=== PATIENT | male | born 1935 | race Caucasian/White ===

== ENCOUNTER 2016-03-10 07:42 | Inpatient (IN) | payer BC, OTHER ==
[2016-03-10] VITALS (30 sets, daily range): BP systolic 95–123; BP diastolic 47–81; PULSE 60–82; TEMP 36.2–36.4; O2SAT 93–99; Ht 162.6 cm; Wt 79.8 kg
[~2016-03-10] VITALS: Ht 162.6 cm; Wt 79.8 kg
[2016-03-10] MEDS ORDERED: SODIUM CHLORIDE 0.9% 1000ML 1,000 ML IV STA (08:19)
[2016-03-10] MEDS ORDERED: ASPIRIN 81 MG CHEW PO STA (08:19)
[2016-03-10] MEDS ORDERED: NITROGLYCERIN OINT 2% 1GM PACKET EXT ONE (08:30)
[2016-03-10 08:37] LABS: BASO % 0.1 %; BASO ABS # 0.01 K/uL (0-0.2); COMPLETE YES; HEMATOCRIT 42.4 % (42-52); IG% 0.4 %; LYMPH % 9.9 %; LYMPH ABS # 1.04 K/uL (1.2-3.4); MEAN CELL VOLUME 89.3 fL (80-100); MEAN CORPUSCULAR HEMOGLOBIN 31.4 pg (25-34); MEAN CORPUSCULAR HGB CONC 35.1 g/dl (32-36); MEAN PLATELET VOLUME 9.7 fL (7.4-10.4); MONO % 6.1 %; NEUT % 83.5 %; PLATELET COUNT 274 K/uL (130-400); RED BLOOD COUNT 4.75 M/uL (4.7-6.1); WHITE BLOOD COUNT 10.49 K/uL (4.8-10.8)
[2016-03-10 08:47] LABS: BUN/CREATININE RATIO 10.7 (10-20); CALCIUM 9.5 mg/dl (8.5-10.1); CREATININE 1.2 mg/dl (0.60-1.40); POTASSIUM 3.9 mmol/L (3.5-5.1)
[2016-03-10] MEDS ORDERED: METOPROLOL TARTRATE 1 MG/ML VIAL IV STA (08:48)
[2016-03-10 08:50] LABS: INR 1.1 (0.9-1.1); PARTIAL THROMBOPLASTIN RATIO 1.2
--- NOTE | 2016-03-10 08:50 | DIAGNOSTIC IMAGING REPORT ---
CHEST ONE VIEW PORTABLE HISTORY: Atypical chest pain. COMPARISON: Chest 05/18/2007. FINDINGS: The heart is top normal in size. Mild eventration of the right hemidiaphragm, unchanged. Bilateral hilar prominence remains stable. No pleural effusions. No pneumothorax. The lungs are clear. IMPRESSION: No significant change compared to the prior study. No acute process. Electronically signed by: Garrett Corbin M.D. 03/10/2016 8:48 AM Dictated Date/Time: 03/10/2016 8:47 AM
[2016-03-10 08:56] LABS: CKMB/CK RATIO 16.5 (0-3.0)
[2016-03-10] MEDS ORDERED: HEPARIN SOD 5000 UNIT/0.5 ML CARP ONE (08:56)
[2016-03-10] MEDS ORDERED: HEPARIN 25000 UNIT/500 ML D5W ONE (08:56)
--- NOTE | 2016-03-10 09:09 | EMERGENCY ROOM VISIT NOTE ---
ED Visit Note First contact with patient: 07:59 JOSEF informed me of patient with chief complaint of chest pain, subtle EKG changes. poc troponin was positive. Case d/w JOSEF and Dr. Hoyos. I examined patient ~ 8:55a. Patient is an otherwise robustly healthy hoover whom has not seen a doctor in more than 7 years who noted vague indigestion last evening followed by a mild to moderate retrosternal chest pain now constant for nearly 10 hours. Patient has received Aspirin 324mg and nitropaste with some improvement in his chest pain. He appears comfortable on my exam with subjective report of mild chest discomfort that is clearly "better but still there." PA has facilitated heparin bolus/drip as well as lopressor. I ordered nitro drip as an adjunctive measure pending formal cardiology consultation and catheterization. I personally spoke with Dr. Hoyos at 09:05 who understands patient has nearly 10 hours of constant CP with EKG changes and positive troponin. He states he is presently on his way to ED to evaluate patient. 10:30 Dr. Hoyos has completed his consultation and [facility] hospitalist service at bedside.
[2016-03-10] MEDS: NITROGLYCERIN/D5W 100 MCG/ML 250 ML IV PRN ×3 (09:12→10:30)
[2016-03-10] MEDS ORDERED: MoRPHine SULFATE 2 MG/ML CARP IV PRN (10:00)
[2016-03-10] MEDS ORDERED: ACETAMINOPHEN 325 MG TAB PO PRN ×3 (10:00→13:45)
[2016-03-10] MEDS ORDERED: EPTIFIBATIDE BOLUS / DRIP IV STA (10:01)
[2016-03-10] MEDS ORDERED: EPTIFIBATIDE INJ 75 MG PREMIXED IV SCH ×2 (10:15→17:30)
[2016-03-10] MEDS ORDERED: EPTIFIBATIDE IV ONE (10:15)
[2016-03-10] MEDS ORDERED: NITROGLYCERIN/D5W 100 MCG/ML 250 ML IV PRN (10:15)
--- NOTE | 2016-03-10 10:53 | History and Physical ---
History & Physical Date & Time of Service: Mar 10, 2016 at 10:37 Chief Complaint: Chest Pain Primary Care Physician: No Doctor, Assigned History of Present Illness Source: patient, family This patient is a pleasant 81-year-old male that presents to the emergency department complaining of chest pain that started last night around 10 PM. The patient thought that it was possibly indigestion. He tried to take 5 Tums throughout the night with no relief. It was fairly constant throughout the night. He denies any shortness of breath. He did have a few brief episodes of sweating. He denies any dizziness. No nausea or vomiting. No heart palpitations. Patient denies any history of coronary disease. He does not however regularly go to the doctor. Workup in the emergency department included an EKG, which shows normal sinus rhythm with a rate of [address] depression noted in the inferior and lateral leads. Initial troponin is elevated at 6. The patient was started on aspirin, heparin and a nitro drip. Cardiology was consulted and evaluated the patient in the emergency department. Since arrival in the ED, the patient's pain has gotten better. Past Medical/Surgical History History of kidney stones status post lithotripsy Family History Father and grandfather of heart disease in their 80s and 90s Social History Smoking Status: Never Smoker Smokeless Tobacco Use: No Alcohol Use: none Drug Use: none Marital Status: Housing status: lives alone Occupational Status: employed (still fairly active working on the [employer]) Allergies Coded Allergies: No Known Allergies (Verified , 03/10/16) Home Medications No Active Prescriptions or Reported Meds Review of Systems Patient does note that he caught a cold about a week ago with a cough and runny nose. No feverish symptoms. Symptoms are resolving. 10 system review performed and negative unless noted in HPI or below Physical Exam Vital Signs Date Time Temp Pulse Resp B/P Pulse Ox O2 Delivery O2 Flow Rate FiO2 03/10/16 10:32 75 03/10/16 10:30 70 20 99/68 96 Room Air 03/10/16 10:05 63 18 120/66 97 Room Air 03/10/16 09:42 72 18 139/87 96 Room Air 03/10/16 09:06 72 18 145/83 96 Room Air 03/10/16 08:59 83 147/85 03/10/16 08:36 82 18 150/93 97 Room Air 03/10/16 08:17 96 Room Air 03/10/16 07:57 87 03/10/16 07:54 36.9 86 20 150/90 97 Room Air General Appearance: no apparent distress Head: normocephalic Eyes: EOMI ENT: + pertinent finding (oral mucosa slightly dry) Neck: no JVD Respiratory/Chest: lungs clear Cardiovascular: regular rate, rhythm Abdomen/GI: normal bowel sounds, non tender, soft Extremities/Musculoskelatal: no calf tenderness, no pedal edema Neurologic/Psych: no motor/sensory deficits, oriented x 3 Skin: warm/dry Diagnostics Laboratory Results Results Past 24 Hours Test 03/10/16 07:59 03/10/16 08:25 03/10/16 08:35 Range/Units White Blood Count 10.49 4.8-10.8 K/uL Red Blood Count 4.75 4.7-6.1 M/uL Hemoglobin 14.9 14.0-18.0 g/dL Hematocrit 42.4 42-52 % Mean Corpuscular Volume 89.3 80-100 fL Mean Corpuscular Hemoglobin 31.4 25-34 pg Mean Corpuscular Hemoglobin Concent 35.1 32-36 g/dl Platelet Count 274 130-400 K/uL Mean Platelet Volume 9.7 7.4-10.4 fL Neutrophils (%) (Auto) 83.5 % Lymphocytes (%) (Auto) 9.9 % Monocytes (%) (Auto) 6.1 % Eosinophils (%) (Auto) 0.0 % Basophils (%) (Auto) 0.1 % Neutrophils # (Auto) 8.76 1.4-6.5 K/uL Lymphocytes # (Auto) 1.04 1.2-3.4 K/uL Monocytes # (Auto) 0.64 0.11-0.59 K/uL Eosinophils # (Auto) 0.00 0-0.5 K/uL Basophils # (Auto) 0.01 0-0.2 K/uL RDW Standard Deviation 42.8 36.4-46.3 fL RDW Coefficient of Variation 13.1 11.5-14.5 % Immature Granulocyte % (Auto) 0.4 % Immature Granulocyte # (Auto) 0.04 0.00-0.02 K/uL Prothrombin Time 12.0 9.0-12.0 SECONDS Prothromb Time International Ratio 1.1 0.9-1.1 Activated Partial Thromboplast Time 29.9 21.0-31.0 SECONDS Partial Thromboplastin Ratio 1.2 Sodium Level 136 136-145 mmol/L Potassium Level 3.9 3.5-5.1 mmol/L Chloride Level 100 98-107 mmol/L Carbon Dioxide Level 23 21-32 mmol/L Anion Gap 13.0 3-11 mmol/L Blood Urea Nitrogen 13 7-18 mg/dl Creatinine 1.20 0.60-1.40 mg/dl Est Creatinine Clear Calc Drug Dose 45.7 ml/min Estimated GFR () 65.8 Estimated GFR (Non- 56.8 BUN/Creatinine Ratio 10.7 10-20 Random Glucose 145 70-99 mg/dl Calcium Level 9.5 8.5-10.1 mg/dl Magnesium Level 2.0 1.8-2.4 mg/dl Total Bilirubin 0.9 0.2-1 mg/dl Aspartate Amino Transf (AST/SGOT) 94 15-37 U/L Alanine Aminotransferase (ALT/SGPT) 47 12-78 U/L Alkaline Phosphatase 70 45-117 U/L Total Creatine Kinase 900 39-308 U/L Creatine Kinase MB 148.3 0.5-3.6 ng/ml Creatine Kinase MB Ratio 16.5 0-3.0 Troponin I 6.820 0-0.045 ng/ml Total Protein 7.9 6.4-8.2 gm/dl Albumin 3.9 3.4-5.0 gm/dl Globulin 4.0 2.5-4.0 gm/dl Albumin/Globulin Ratio 1.0 0.9-2 Lipase 141 73-393 U/L Bedside Troponin I 4.650 0-0.045 ng/ml Influenza Type A Antigen Neg for Influ A NEG Influenza Type B Antigen Neg for Influ B NEG Diagnostic Radiology Patient Name: DIVINA GUZMAN Unit Number: [id number] Dictated: 03/10/16846 Transcribed: 03/10/16846 KASHIF Printed Date/Time: [~ rep prt dt]/[~ rep prt tm] [~ rep ct labl] - [~ rep ct ivnm] [facility] [place] [place] [address] Dictated: 03/10/1647 Transcribed: 03/10/16 0847 PAJ Printed Date/Time: [~ rep prt dt]/[~ rep prt tm] [~ rep ct labl] - [~ rep ct ivnm] Patient: DIVINA GUZMAN Address1: [facility] [address] Med Rec: [id number] Address2: Acct ID: [id number] [facility] Zip: [place] [address] Date: 1935 Sex: M Room/Bed: Ref Phy: No Doctor, Assigned SC: GopalPRASAD Att Phy: Report #: [id number] [facility] Phy: No Doctor, Assigned Test: CXR1P Admit Phy: Bid Clerk: SANIA Interpreting Phy: Garrett Corbin MD Diagnosis: CHEST PAIN Ordering Phy: Kannan Lund PA-C Service Date: 03/10/16 Admit Date: 03/10/16 MNE: [id number] CONF: DICTATED BY: Garrett Corbin M.D.]] CC: No Doctor, Assigned Kannan Lund, Pastora El MD Endcc: [~ rep ct add3]] CHEST ONE VIEW PORTABLE HISTORY: Atypical chest pain. COMPARISON: Chest 05/18/2007. FINDINGS: The heart is top normal in size. Mild eventration of the right hemidiaphragm, unchanged. Bilateral hilar prominence remains stable. No pleural effusions. No pneumothorax. The lungs are clear. IMPRESSION: No significant change compared to the prior study. No acute process. Electronically signed by: Garrett Corbin M.D. 03/10/2016 8:48 AM Dictated Date/Time: 03/10/2016 8:47 AM The status of this report is Signed. Draft = Not yet reviewed or approved by Radiologist. Signed = Reviewed and approved by Radiologist. <AttendingPhy></AttendingPhy> <FamilyPhy>No Doctor, Assigned</FamilyPhy> < PrimaryPhy>No Doctor, Assigned</PrimaryPhy> <UnitNumber>[id number]</UnitNumber> <VisitNumber>[id number]</VisitNumber> <PatientName>DIVINA GUZMAN</ PatientName> <DateOfBirth>1935</DateOfBirth> <Location>[facility]</Location> < ServiceDate>03/10/16</ServiceDate> <MNE>ESINDI</MNE> <OrderingPhy>Kannan Lund PA-C</OrderingPhy> <OrderingPhyMNE>f rep ord dr wall</OrderingPhyMNE> < DictatingPhyMNE>f rep dict dr wall</DictatingPhyMNE> <CCListMNE>f rep ct polinae</ CCListMNE> <AdmittingPhyMNE>f pt admit dr wall</AdmittingPhyMNE> <AttendingPhyMNE >f pt attend dr wall</AttendingPhyMNE> <ConsultingPhyMNE>f pt consult dr wall</ConsultingPhyMNE> <FamilyPhyMNE>f pt fam dr wall</FamilyPhyMNE> <OtherPhyMNE>f pt other dr wall</OtherPhyMNE> < PrimaryPhyMNE>f pt prim care dr wall</PrimaryPhyMNE> <ReferringPhyMNE>f pt referring dr wall</ReferringPhyMNE> EKG Normal sinus rhythm [address] depression noted in the inferior lateral leads Repeat EKG done approximately [address] changes improved Impression Assessment and Plan 81-year-old male presents emergency department with anginal symptoms. Initial EKG with ST depression in inferior and lateral leads with an elevated troponin at 6. Initially hypertensive in the emergency department-now improved NSTEMI -Admit to ICU -Trend cardiac enzymes -Cardiology consult appreciated -Continue nitro drip -Continue heparin drip -Begin Integrilin -Begin ASA and statin -Check lipid profile -Metoprolol tartrate 5 mg IV q 6 hr today -NPO After midnight. Likely cath in the morning. HTN-BP initially high -Continue meds as noted above today -Possibly switch to metoprolol ER tomorrow -Consider low-dose SELMA inhibitor if BP will tolerate Upper respiratory tract infection-chest x-ray clear. Afebrile. Likely viral. -treat sx prn -check FLU DVT prophylaxis -Heparin drip -TEDS, SCDs CODE STATUS -LEVEL I FULL CODE I agree with PA assessment and plan and have seen and examined pt myself. Pt reports chest pain improved No Med Hx Elev trops and mild depressions noted on EKG CVS RRR no m/r/g Plan is ?cath but not emergent at this time, cont heparin, statin, asa, integrilin Level of Care Critical Care Resuscitation Status FULL RESUSCITATION VTE Prophylaxis VTE Risk Assessment Done? Y/N: Yes Risk Level: Low Given or contraindicated: Other Anticoagulation, T.E.D. Stockings, SCD's
[2016-03-10] MEDS ORDERED: PERFLUTREN LIPID MICROSPHERE (DEFINITY) IV ONE (11:16)
[2016-03-10 11:28] LABS: ESTIMATED AVERAGE GLUCOSE 117 mg/dl; HA1C FLAG Normal (Normal)
[2016-03-10] MEDS ORDERED: NiCARDipine HCL INJ 2.5 MG/ML 10 ML AMP ONE (11:37)
[2016-03-10] MEDS ORDERED: HEPARIN SOD (PORCINE) 1000 UNIT/ML 10 ML VIAL ONE (11:37)
[2016-03-10] MEDS ORDERED: FENTANYL CITRATE INJ 50 MCG/1 ML 2 ML VIAL ONE (11:40)
[2016-03-10] MEDS ORDERED: NITROGLYCERIN/D5W 100MCG/ML 20ML SYR ONE (11:40)
[2016-03-10] MEDS ORDERED: MIDAZOLAM HCL 1 MG/ML 2ML VIAL ONE ×2 (11:40→12:44)
--- NOTE | 2016-03-10 11:43 | Procedure Note ---
Pre-Mod Sedation Assessment General Date of Moderate Sedation: Mar 10, 2016. Vital Signs: Vital Signs Past 12 Hours Date Time Temp Pulse Resp B/P Pulse Ox O2 Delivery O2 Flow Rate FiO2 03/10/16 11:22 68 18 99 03/10/16 11:18 100/53 03/10/16 11:12 63 23 98 03/10/16 11:08 115/57 03/10/16 11:02 64 20 100 03/10/16 10:58 97/54 03/10/16 10:52 64 21 96 03/10/16 10:48 103/55 03/10/16 10:47 65 24 105/53 95 Room Air 03/10/16 10:42 64 22 95 03/10/16 10:38 105/53 03/10/16 10:32 65 26 96 03/10/16 10:32 75 03/10/16 10:30 70 20 99/68 96 Room Air 03/10/16 10:29 99/68 03/10/16 10:22 64 19 96 03/10/16 10:18 116/71 03/10/16 10:12 64 29 95 03/10/16 10:08 104/71 03/10/16 10:05 63 18 120/66 97 Room Air 03/10/16 10:02 64 16 95 03/10/16 09:58 120/66 03/10/16 09:52 68 15 96 03/10/16 09:48 120/74 03/10/16 09:42 72 18 139/87 96 Room Air 03/10/16 09:42 69 19 96 03/10/16 09:38 139/87 03/10/16 09:32 69 18 94 03/10/16 09:28 127/79 03/10/16 09:22 71 26 94 03/10/16 09:18 136/83 03/10/16 09:12 72 22 95 03/10/16 09:11 149/75 03/10/16 09:06 72 18 145/83 96 Room Air 03/10/16 09:05 145/83 03/10/16 09:02 78 21 95 03/10/16 08:59 83 147/85 03/10/16 08:58 147/85 03/10/16 08:56 150/85 03/10/16 08:52 88 17 98 03/10/16 08:43 148/89 03/10/16 08:42 80 23 95 03/10/16 08:36 82 18 150/93 97 Room Air 03/10/16 08:32 81 27 98 03/10/16 08:30 150/93 03/10/16 08:17 96 Room Air 03/10/16 08:12 88 26 98 03/10/16 08:02 83 17 97 03/10/16 07:58 159/82 03/10/16 07:57 87 03/10/16 07:54 36.9 86 20 150/90 97 Room Air 03/10/16 07:52 150/90 Review Cardiovascular: regular rate, rhythm, no edema, no gallop, no JVD, no murmur, normal peripheral pulses Abdomen: non tender, soft Lungs: lungs clear Pre-Sedation Airway Assessment Oral Cavity: Dental Abnormalities Able to Visualize Vocal Cords: No Short Thick Neck: No Hx of Sleep Apnea: No Smoking Status: Never Smoker Mallampati Classification: Class III ASA Classification: Class II Procedure Planning Contraindications-for Mod Sed: None Yes Notes The planned sedation has been discussed with the patient and consent obtained. I have identified the patient, determined the appropriateness of sedation and have assessed the patient immediately prior to the procedure. All medicine(s) and interventions are by my order.
[2016-03-10] MEDS ORDERED: METOPROLOL TARTRATE 1 MG/ML VIAL IV. SCH (12:00)
[2016-03-10] MEDS ORDERED: CLOPIDOGREL BISULFATE 300 MG TAB PO ONE (13:02)
[2016-03-10] MEDS: SODIUM CHLORIDE 0.9% 1000ML 1,000 ML IV SCH (13:45)
[2016-03-10] MEDS ORDERED: EPTIFIBATIDE BOLUS / DRIP IV ONE (13:45)
[2016-03-10] MEDS ORDERED: ONDANSETRON INJ 2 MG/ML 2 ML VIAL IV PRN (13:45)
[2016-03-10] MEDS ORDERED: ATROPINE SULFATE 0.1 MG/ML 5ML SYR IV PRN (13:45)
[2016-03-10] MEDS ORDERED: ALUMINUM/MAGNESIUM/SIMETH (MAALOX MAX) 30 ML UDC PO PRN (13:45)
[2016-03-10] MEDS ORDERED: MAGNESIUM HYDROXIDE SUSP 30 ML UDC PO PRN (13:45)
--- NOTE | 2016-03-10 13:45 | Procedure Note ---
Post-Mod Sedation Assessment General Date of Moderate Sedation Mar 10, 2016. Vital Signs: Vital Signs Past 12 Hours Date Time Temp Pulse Resp B/P Pulse Ox O2 Delivery O2 Flow Rate FiO2 03/10/16 13:25 62 16 97/60 98 Room Air 03/10/16 13:20 62 16 95/63 98 Room Air 03/10/16 13:15 65 16 112/80 98 Room Air 03/10/16 13:10 65 16 107/91 98 Room Air 03/10/16 11:37 36.9 68 18 100/53 99 03/10/16 11:22 68 18 99 03/10/16 11:18 100/53 03/10/16 11:12 63 23 98 03/10/16 11:08 115/57 03/10/16 11:02 64 20 100 03/10/16 10:58 97/54 03/10/16 10:52 64 21 96 03/10/16 10:48 103/55 03/10/16 10:47 65 24 105/53 95 Room Air 03/10/16 10:42 64 22 95 03/10/16 10:38 105/53 03/10/16 10:32 65 26 96 03/10/16 10:32 75 03/10/16 10:30 70 20 99/68 96 Room Air 03/10/16 10:29 99/68 03/10/16 10:22 64 19 96 03/10/16 10:18 116/71 03/10/16 10:12 64 29 95 03/10/16 10:08 104/71 03/10/16 10:05 63 18 120/66 97 Room Air 03/10/16 10:02 64 16 95 03/10/16 09:58 120/66 03/10/16 09:52 68 15 96 03/10/16 09:48 120/74 03/10/16 09:42 72 18 139/87 96 Room Air 03/10/16 09:42 69 19 96 03/10/16 09:38 139/87 03/10/16 09:32 69 18 94 03/10/16 09:28 127/79 03/10/16 09:22 71 26 94 03/10/16 09:18 136/83 03/10/16 09:12 72 22 95 03/10/16 09:11 149/75 03/10/16 09:06 72 18 145/83 96 Room Air 03/10/16 09:05 145/83 03/10/16 09:02 78 21 95 03/10/16 08:59 83 147/85 03/10/16 08:58 147/85 03/10/16 08:56 150/85 03/10/16 08:52 88 17 98 03/10/16 08:43 148/89 03/10/16 08:42 80 23 95 03/10/16 08:36 82 18 150/93 97 Room Air 03/10/16 08:32 81 27 98 03/10/16 08:30 150/93 03/10/16 08:17 96 Room Air 03/10/16 08:12 88 26 98 03/10/16 08:02 83 17 97 03/10/16 07:58 159/82 03/10/16 07:57 87 03/10/16 07:54 36.9 86 20 150/90 97 Room Air 03/10/16 07:52 150/90 Review - Discharge Criteria Vital Signs Stable: Yes Alert/Oriented/Conversant: Yes Returned to Baseline Mental St: Yes Nausea Absent/Minimal: Yes Pain/Discomfort/Absent/Minimal: Yes Normal/Baseline Respirations: Yes Active Bleeding?: No Pt Received D/C Instructions: N/A Prescriptions Given: None Specific Proced. D/C Criteria Distal Pulses Present (Cardiac: Yes Groin site assessed-Card Cath: N/A Voided Prior To Discharge: N/A Discharged Patients Adult Escort/Transportation: N/A
[2016-03-10 14:47] LABS: BASO % 0.1 %; BASO ABS # 0.01 K/uL (0-0.2); EOS % 0.2 %; HEMATOCRIT 38.6 % (42-52); IG% 0.4 %; LYMPH ABS # 1.42 K/uL (1.2-3.4); MEAN CELL VOLUME 89.8 fL (80-100); MEAN CORPUSCULAR HEMOGLOBIN 31.9 pg (25-34); MEAN PLATELET VOLUME 9.7 fL (7.4-10.4); MONO % 5.6 %; NEUT % 79.7 %; PLATELET COUNT 237 K/uL (130-400); WHITE BLOOD COUNT 10.17 K/uL (4.8-10.8)
[2016-03-10 15:01] LABS: COMPLETE YES; MEAN CORPUSCULAR HGB CONC 35.5 g/dl (32-36)
[2016-03-10 15:16] LABS: BLOOD UREA NITROGEN 13 mg/dl (7-18); BUN/CREATININE RATIO 14.1 (10-20); CALCIUM 8.3 mg/dl (8.5-10.1); CARBON DIOXIDE 24 mmol/L (21-32); CHLORIDE 102 mmol/L (98-107); CREATININE 0.91 mg/dl (0.60-1.40); GLUCOSE 102 mg/dl (70-99); POTASSIUM 3.7 mmol/L (3.5-5.1); SODIUM 137 mmol/L (136-145)
--- NOTE | 2016-03-10 15:28 | Cardiac Catheterization ---
Procedure Note Procedure Date Mar 10, 2016. Pre-Procedure Diagnosis Non STEMI, Acute Coronary Syndrome AUC Score 9 Post-Procedure Diagnosis Severe CAD, Successful PCI, Elevated Intracardiac Pressures Procedure(s) Performed Coronary Angiography, Left Heart Cath, PTCA, Drug Eluting Stent Radiology Director Dr. Hoyos [employer] Mechanic(s) Javan Stevens,RTR Estimated Blood Loss 30 ml Medication(s) Clopidogrel (600 mg PO post PCI), Fentanyl, Heparin, Integrilin, Nicardipine ( Intra arterial and intracoronary), Versed, Lidocaine 1% Summary of Findings Right dominant circulation, mild CAD of LAD and RCA. Total proximal left circumflex occlusion. R - L collaterals. PTCA and ELEAZAR to left Cx . 2.25 X 18 mm Medtronic Resolute ELEAZAR. Proximal and mid portion of stent post dilated with 2.75 X 8 mm non compliant balloon. Residual stenosis 0-10%. CHRISTAL 3 flow in L CX and all branches. No complications. Plan: IV Integrilin X 18 hr. ASA,clopidogrel,atorvastatin, lisinopril, metoprolol. Serial ECG and labs. ICU overnight. Hemodynamics Rest Ao: 104/54/76 mm Hg. Final Ao: 90/52/68 mm Hg. LV: 102/20 mm Hg. Recommendations Medical therapy and/or Counseling, PCI without planned CABG Specimens None Radiation Exposure (mGy) 3707 Contrast (mls) 250 ml Visipaque Fluids (cc crystalloids) 400 Drains none Anesthesia IV versed,fentanyl. Lidocaine 1% local. Procedural Complication(s) None Disposition ICU ACC Data Cardiac Status Clinical evaluation leading to the procedure CAD Presntation: Non STEMI Anginal Classification: CCS IV Heart Failure: No Cardiogenic Shock w/in 24Hrs: No Cardiac Arrest w/in 24Hrs: No Imaging studies past 6 months: Yes Stress studies past 6 months: No Standard Exercise Stress Test: No Stress Echocardiogram: No Stress Testing w/SPECT MPI: No Cardiac CTA: No Coronary Anatomy Dominant: Right Left Main (% Stenosis): Normal LAD (% Stenosis): Proximal (diffuse 10-20), Mid (50,30-40), Distal (20) D1 (% Stenosis): Normal D2 (% Stenosis): Ostial (50) Circumflex (% Stenosis): Proximal (100) OM1 (% Stenosis): Ostial (50) OM2 (% Stenosis): Proximal (0-10), Mid (0-10) Left Ventricular Angiography EF (%): NA Diagnostic Physician's Name: Valeriy Hoyos M.D. Status: Elective Closure Device Percutaneous Entry Location: Radial Closure Device: Radial Band Recommendations: Medical therapy and/or Counseling, PCI without planned CABG PCI Indication: PCI for high risk Non-STEMI Lesion Segment Name: Proximal left Cx Culprit Artery: Yes Stenosis Prior to Rx (%): 100 Chronic Total Occlusion: No IVUS: No FFR: No Ratio: less than or equal to 0.75% Pre-Procedure CHRISTAL Flow: 0 Previously Treated Lesion: No Lesion Complexity: Non-High/Non-C Lesion Length (mm): 14 Thrombus Present: Yes Bifurcation Lesion: No Guidewire Across Lesion: Yes Guidewire: Stenosis Post-Procedure (%): 0-10 Post-Procedure CHRISTAL Flow: 3 Device(s) Deployed: Yes Type of Device(s): Medtronic Resolute 2.25 X 18 mm ELEAZAR. Intraprocedure Events Significant Dissection: No Perforation: No
--- NOTE | 2016-03-10 16:16 | ECHOCARDIOGRAM REPORT ---
*NOTICE TO RECEIVING [employer] This information is strictly Confidential and protected under [place] law. [place] law prohibits you from making any further disclosure of this information unless further disclosure is expressly permitted by the written consent of the person to whom it pertains or is authorized by law. A general authorization for the release of medical or other information is not sufficient for this purpose. Hospital accepts no responsibility if the information is made available to any other person, INCLUDING THE PATIENT. Interpretation Summary * Name: DIVINA GUZMAN Study Date: 03/10/2016 10:31 AM BP: 105/53 mmHg * Patient Location: [facility] HR: 66 * : 1935 (M/d/yyyy) Gender: Male Height: 63 in * Age: 81 yrs Ethnicity: CA Weight: 174 lb * Ordering Physician: Valeriy Hoyos * Referring Physician: Self, Referred * Performed By: Diana Cardenas RDCS * * Reason For Study: CHEST PAIN * BSA: 1.8 m2 * History: CHEST PAIN * Low normal overall LV systolic function. * Basal - mid posterior, lateral, basal inferior hypokinesis. * Mild right ventricular dilatation. * Mild right ventricular systolic dysfunction. * Mild left atrial dilatation. * Mild mitral regurgitation. * Trace tricuspid regurgitation. * -- Conclusions -- * Aortic valve sclerosis mild, without significant aortic valvular stenosis. Procedure Details * A contrast injection of Definity was performed to improve assessment of LV function. * Contrast was injected into an intravenous site in the left arm. * One vial of Definity ultrasound contrast was diluted in normal saline to a total volume of 10 ml. A total of '2' ml of solution was administered during imaging. * Lot # [id number] of Definity utilized for procedure. * Expiration date 1 AUG 01. * The attending nurse who injected the contrast agent was KAIDEN KIMBROUGH. Left Ventricle * The left ventricle is normal in size. * There is normal left ventricular wall thickness. * Ejection Fraction = 50-55%. * Left ventricular systolic function is low normal. * Basal-mid posterior hypokinesis. Lateral hypokinesis. Basal inferior hypokinesis. Right Ventricle * The right ventricle is mildly dilated. * The right ventricular systolic function is mildly reduced. Atria * The left atrium is mildly dilated. * Right atrial size is normal. * No ASD detected; PFO is not assessed. Mitral Valve * The mitral valve is normal. * There is no mitral valve stenosis. * There is mild mitral regurgitation. Tricuspid Valve * The tricuspid valve is normal. * There is no tricuspid stenosis. * There is trace tricuspid regurgitation. * Right ventricular systolic pressure is normal. Aortic Valve * The aortic valve is trileaflet. * The aortic valve opens well. * Aortic valve sclerosis mild, without significant aortic valvular stenosis. * Aortic stenosis is absent. * No aortic regurgitation is present. Pulmonic Valve * The pulmonic valve is not well visualized. * There is no significant pulmonary regurgitation. Great Vessels * The aortic root is normal size. Pericardium/Pleural * There is no pericardial effusion. Great Vessels * Normal inferior vena cava diameter and respiratory variation suggests normal central venous pressure. MMode 2D Measurements and Calculations IVSd 1.0 cm IVSs 1.7 cm LVIDd 5.3 cm LVIDs 3.9 cm LVPWd 0.89 cm LVPWs 1.1 cm IVS/LVPW 1.2 FS 26.3 % EDV(Teich) 133.1 ml ESV(Teich) 65.0 ml EF(Teich) 51.1 % EDV(cubed) 145.6 ml ESV(cubed) 58.3 ml EF(cubed) 60.0 % % IVS thick 61.2 % % LVPW thick 20.5 % LV mass(C)d 188.6 grams LV mass(C)dI 103.4 grams/m\S\2 LV mass(C)s 193.7 grams LV mass(C)sI 106.3 grams/m\S\2 SV(Teich) 68.0 ml SI(Teich) 37.3 ml/m\S\2 SV(cubed) 87.3 ml SI(cubed) 47.9 ml/m\S\2 Ao root diam 3.5 cm Ao root area 9.6 cm\S\2 LA dimension 4.0 cm LA/Ao 1.1 LVAd ap4 33.9 cm\S\2 LVLd ap4 7.8 cm EDV(MOD-sp4) 119.4 ml EDV(sp4-el) 124.9 ml LVAs ap4 21.8 cm\S\2 LVLs ap4 6.8 cm ESV(MOD-sp4) 56.4 ml ESV(sp4-el) 59.3 ml EF(MOD-sp4) 52.7 % EF(sp4-el) 52.5 % LVAd ap2 27.6 cm\S\2 LVLd ap2 7.4 cm EDV(MOD-sp2) 82.8 ml EDV(sp2-el) 87.6 ml LVAs ap2 16.7 cm\S\2 LVLs ap2 6.0 cm ESV(MOD-sp2) 36.4 ml ESV(sp2-el) 39.6 ml EF(MOD-sp2) 56.1 % EF(sp2-el) 54.8 % LVLd %diff -5.84 % EDV(MOD-bp) 102.0 ml LVLs %diff -14.07 % ESV(MOD-bp) 48.6 ml EF(MOD-bp) 52.3 % SV(MOD-sp4) 63.0 ml SI(MOD-sp4) 34.6 ml/m\S\2 SV(MOD-sp2) 46.5 ml SI(MOD-sp2) 25.5 ml/m\S\2 SV(MOD-bp) 53.4 ml SI(MOD-bp) 29.3 ml/m\S\2 SV(sp4-el) 65.6 ml SI(sp4-el) 36.0 ml/m\S\2 SV(sp2-el) 48.1 ml SI(sp2-el) 26.4 ml/m\S\2 Doppler Measurements and Calculations MV E max yordy 78.6 cm/sec MV A max yordy 51.4 cm/sec MV E/A 1.5 MV dec time 0.20 sec Ao V2 max 119.4 cm/sec Ao max PG 5.7 mmHg Ao max PG (full) 2.8 mmHg LV V1 max PG 2.9 mmHg LV V1 max 85.4 cm/sec TR max yordy 245.7 cm/sec
--- NOTE | 2016-03-10 16:46 | EMERGENCY ROOM VISIT NOTE ---
History First contact with patient: 07:59 Chief Complaint: CHEST PAIN Stated Complaint: NSTEMI Nursing Triage Summary: pt c/o left chest pain started at 2200 last night unable to sleep pt thought it was the cabbage and potatoes he ate. denies any n/v pain radiated to jaw and left arm last night but not today also reports he got sweaty a couple times last night pt reports he took 3 baby asa this am History of Present Illness The patient is a 81 year old male who presents to the Emergency Department by private vehicle with his daughter for evaluation of his LEFT sided chest pain. The patient reports that he shoveled snow last evening at approximately 8:30. While resting and watching television at 10 PM, he noticed some central chest discomfort. He thought his symptoms were consistent with heartburn as he reports eating cabbage and potatoes that evening. He ambulated around the house , but reports that he did not receive any relief of symptoms. Upon awakening this morning, he has had persistent pain which has lateralized to the LEFT- sided chest. He reports the pain is now constant in nature. He denies any aggravating or alleviating symptoms. He did take 3 baby aspirin prior to arrival. He rates his current discomfort as a 7/10. He reports radiation to the LEFT-sided face and arm last evening when the pain was most intense. He denies any radiation of pain at this point. He currently denies any headaches, dizziness, lightheadedness, palpitations, shortness of breath, pleuritic pain, nausea, vomiting, or abdominal pain. The patient reports no history of coronary artery disease, hypertension, or hyperlipidemia. Admittedly, the patient has not seen a primary care provider for several years. He does report a significant paternal family history of coronary artery disease. Review of Systems A complete 10-point Review of Systems was discussed with the patient, with pertinent positives and negatives listed in the History of Present Illness. All remaining Review of Systems questions can be considered negative unless otherwise specified. 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) Current/Historical Medications No Active Prescriptions or Reported Meds Allergies Coded Allergies: No Known Allergies (Verified , 03/10/16) Physical Exam Vital Signs Date Time Temp Pulse Resp B/P Pulse Ox O2 Delivery O2 Flow Rate FiO2 03/10/16 10:08 104/71 03/10/16 10:05 63 18 120/66 97 Room Air 03/10/16 10:02 64 16 95 03/10/16 09:58 120/66 03/10/16 09:52 68 15 96 03/10/16 09:48 120/74 03/10/16 09:42 72 18 139/87 96 Room Air 03/10/16 09:42 69 19 96 03/10/16 09:38 139/87 03/10/16 09:32 69 18 94 03/10/16 09:28 127/79 03/10/16 09:22 71 26 94 03/10/16 09:18 136/83 03/10/16 09:12 72 22 95 03/10/16 09:11 149/75 03/10/16 09:06 72 18 145/83 96 Room Air 03/10/16 09:05 145/83 03/10/16 09:02 78 21 95 03/10/16 08:59 83 147/85 03/10/16 08:58 147/85 03/10/16 08:56 150/85 03/10/16 08:52 88 17 98 03/10/16 08:43 148/89 03/10/16 08:42 80 23 95 03/10/16 08:36 82 18 150/93 97 Room Air 03/10/16 08:32 81 27 98 03/10/16 08:30 150/93 03/10/16 08:17 96 Room Air 03/10/16 08:12 88 26 98 03/10/16 08:02 83 17 97 03/10/16 07:58 159/82 03/10/16 07:57 87 03/10/16 07:54 36.9 86 20 150/90 97 Room Air 03/10/16 07:52 150/90 Pain Rating (0-10): 7 Physical Exam VITAL SIGNS - Vital signs and nursing notes were reviewed. GENERAL - 81-year-old male appearing his stated age who is in no acute distress. Communicates well with provider and answers questions appropriately. HEAD - NC/AT. EYES - PERRL with EOMI bilaterally. Sclera anicteric. Palpebral conjunctiva pink and moist with no injection noted. EARS - No deformities of external structures noted on gross examination bilaterally. No pain elicited with palpation of the tragus bilaterally. External auditory canals without discharge or otorrhea. Tympanic membranes pearly cleary without retraction or bulging. NOSE - Midline and without cyanosis. No epistaxis or purulent drainage noted. Septum midline without deviation or septal hematoma noted. MOUTH/OROPHARYNX - Without perioral cyanosis. Buccal mucosa pink and moist and without leukoplakia. Tongue midline with equal elevation of palate bilaterally. No tonsillar hypertrophy, erythema, or exudates noted. NECK - Neck with FROM. Supple to palpation. LUNGS - Chest wall symmetric without accessory muscle use, intercostals retractions, or central cyanosis. Normal vesicular breath sounds CTA B/L. No wheezes, rales, or rhonchi appreciated. CARDIAC - RRR with S1/S2. No murmur, rubs, or gallops appreciated. No reproducible tenderness to palpation appreciated over the anterior chest wall. ABDOMEN - Abdominal contour flat and without pulsations or visible masses. BS normoactive all four quadrants. No tenderness, palpable masses, hepatosplenomegaly, or ascites noted. EXTREMITIES - No clubbing or peripheral cyanosis. No pretibial edema present. +3 /5 radial and dorsalis pedis pulses palpated throughout. +5/5 strength noted in UE/LE bilaterally. NEUROLOGIC - Cranial nerves II through XII grossly intact. Sensory intact to light touch throughout. PSYCH - A&Ox3 and cooperates fully with examiner. Pt is very pleasant and interacts well with examiner. Medical Decision & Procedures ER Provider Diagnostic Interpretation: Radiological imaging and reports were reviewed by myself. Radiologist's Interpretation as follows: CHEST ONE VIEW PORTABLE HISTORY: Atypical chest pain. COMPARISON: Chest 05/18/2007. FINDINGS: The heart is top normal in size. Mild eventration of the right hemidiaphragm, unchanged. Bilateral hilar prominence remains stable. No pleural effusions. No pneumothorax. The lungs are clear. IMPRESSION: No significant change compared to the prior study. No acute process. Laboratory Results Test 03/10/16 07:59 03/10/16 08:25 03/10/16 08:35 Prothrombin Time 12.0 SECONDS (9.0-12.0) Prothromb Time International Ratio 1.1 (0.9-1.1) Activated Partial Thromboplast Time 29.9 SECONDS (21.0-31.0) Partial Thromboplastin Ratio 1.2 Estimated Average Glucose 117 mg/dl Hemoglobin A1c 5.7 % (4.5-5.6) Magnesium Level 2.0 mg/dl (1.8-2.4) Total Bilirubin 0.9 mg/dl (0.2-1) Aspartate Amino Transf (AST/SGOT) 94 U/L (15-37) Alanine Aminotransferase (ALT/SGPT) 47 U/L (12-78) Alkaline Phosphatase 70 U/L (45-117) Total Protein 7.9 gm/dl (6.4-8.2) Albumin 3.9 gm/dl (3.4-5.0) Globulin 4.0 gm/dl (2.5-4.0) Albumin/Globulin Ratio 1.0 (0.9-2) Lipase 141 U/L (73-393) Bedside Troponin I 4.650 ng/ml (0-0.045) Influenza Type A Antigen Neg for Influ A (NEG) Influenza Type B Antigen Neg for Influ B (NEG) Medications Administered Medications (Trade) Dose Ordered Sig/Carol Route Start Time Stop Time Status Last Admin Dose Admin Sodium Chloride (Nss 1000ml) 1,000 ml @ 80 mls/hr [id number] STAT IV 03/10/16 08:19 03/10/16 14:10 DC 03/10/16 08:31 80 MLS/HR Aspirin (Aspirin Chew) 81 mg NOW STAT PO 03/10/16 08:19 03/10/16 08:21 DC 03/10/16 08:28 81 MG Nitroglycerin (Nitroglycerin 2% Oint) 1 inch NOW ONCE EXT 03/10/16 08:30 03/10/16 13:53 DC 03/10/16 08:28 1 INCH Metoprolol Tartrate (Lopressor Iv) 5 mg NOW STAT IV 03/10/16 08:48 03/10/16 08:49 DC 03/10/16 08:59 5 MG Heparin Sodium/ Dextrose (Heparin 25,000 Unit/500ml D5W) 25,000 unit STK-MED ONCE .ROUTE 03/10/16 08:56 03/10/16 08:58 DC 03/10/16 09:02 25,000 UNIT Heparin Sodium (Porcine) 5000 unit 5,000 unit STK-MED ONCE .ROUTE 03/10/16 08:56 03/10/16 08:58 DC 03/10/16 09:00 5,000 UNIT Nitroglycerin/ Dextrose (Nitroglycerin/ D5w 100 Mcg/Ml) 250 ml @ 0 mls/hr Q0M PRN IV 03/10/16 09:00 03/10/16 12:36 DC 03/10/16 10:30 9 MLS/HR Procedure Patient was placed on the cardiac monitor technician and monitored throughout the entire extent of their stay. In addition, the patient's pulse oximetry was monitored throughout the entire stay. Any abnormalities or aberrancies were addressed appropriately. ECG Indication: chest pain Rate (beats per minute): 85 Rhythm: normal sinus Findings: ST depression (Inferior, Lateral) Comparison ECG Date: Change: Repeat EKG at 08:45 after nitro demonstrates NSR at a rate of 77 bpm with slight improvement of ST Depression in Inferior and Lateral Leads. ED Course Patient was seen and evaluated by myself. Labs were drawn, saline lock in place. EKG was concerning for ST depression in the inferior and lateral leads. Because of this, the patient was slowly hydrated with normal saline at a rate of 80 mL per hour while receiving topical nitroglycerin. He received 81 mg of aspirin orally which aches a full dose aspirin for this morning. Chest x-ray was obtained and found to be unremarkable. Laboratory results demonstrate no acute leukocytosis, worrisome anemia, or bandemia. Initial [id number] troponin was found to be elevated at 4.65. I did reevaluate the patient and he is having persistent pain. I did speak with the chief administrative officer, Dr. Hoyos, who recommends IV Lopressor as well as heparinization. He reports that he will evaluate the patient the emergency Department, but suggests admission to hospitalist service. Laboratory troponin was found to be significant elevated at 6.82. CPK and cardiac enzymes were all elevated. Patient received 5 mg metoprolol intravenously and was heparinized with drip and bolus in the emergency department. Patient remains well appearing and hemodynamically stable. Patient was admitted in fair condition. Medical Decision Given the patient's presentation and stated complaints, I did elect to perform the above-mentioned workup. The patient resents today with ongoing chest pain for the last several hours. The pain is independent of exertion. He has no history of cardiac disease otherwise. There is a significant family history of coronary artery disease, however. His initial EKG was somewhat concerning with slight ST depression in inferior and lateral leads. Because of this, the patient was aggressively managed from a cardiac standpoint. His troponin was found to be elevated concerning for recent cardiac injury. He does have persistent pain. His blood pressure was controlled with Lopressor and he was heparinized at the recommendation of interventional cardiology. The patient was monitored closely in the emergency setting. He was admitted to the hospitalist program for further evaluation and interventional management at the guidance of interventional cardiology. Patient admitted in fair condition. In the evaluation and treatment of this patient, the following differential diagnoses were considered: [place], ASC, Dysrhythmia, Angina, Mediastinitis, GERD, Esophagitis, PE, Pneumonia, Bronchitis, Costochondritis, Rib Fracture, Zoster. Impression Primary Impression: NSTEMI (non-ST elevated myocardial infarction) Critical Care I have personally spent greater than 30 minutes of critical care time in the direct management of this patient. This includes bedside care, interpretation of diagnostic studies, and testing, discussion with consultants, patient, and family members, and other required patient management activities. This 30 minutes is in excess of all separately billable procedures. Departure Information Dispostion Admitted as an inpatient Condition FAIR Prescriptions No Active Prescriptions or Reported Meds Referrals No Doctor, Assigned (PCP) Forms HOME CARE DOCUMENTATION FORM, IMPORTANT VISIT INFORMATION Patient Instructions [facility]
--- NOTE | 2016-03-10 16:55 | Critical Care Consultation ---
Critical Care Consultation Date of Consultation: Mar 10, 2016. Attending Physician: Darnell Jamison D.O. History of Present Illness Dear Dr. Jamison, Dear Jen: Thank you for your kind referral of Mr. Kingston to critical care service. this is 81 yo male without significant past medical hx , has not in hospital ever, presented to the hospital after an episode of chest pain while clearing snow off his yard, he took TUMS without response , presented to the ED and found to have EKG changes with St depression in the ineferior leads, the pt was taken to the confectionery laboratory manager and had a single ELEAZAR to the LCX . the pt placed on Integrilin drip and started on aspirin, and admitted to the ICU for further treatment. in the ICU, the pt was pain free, has no symptoms, ROS did not reveal sob , lightheadedness, NV, change in BM or UH. his ROS was unremarkable. Past Medical/Surgical History urolithiasis in 2007 with lithotripsy. NSTEMI with stent to the LCX today. 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) Allergies Coded Allergies: No Known Allergies (Verified , 03/10/16) Home Medications No Active Prescriptions or Reported Meds Current Inpatient Medications Current Inpatient Medications Medications (Trade) Dose Ordered Sig/Carol Route Start Time Stop Time Status Last Admin Dose Admin Eptifibatide (Integrilin Inj) 100 ml @ 13 mls/hr [id number] IV 03/10/16 10:15 03/10/16 17:56 03/10/16 10:45 13 MLS/HR Pantoprazole Sodium (Protonix Tab) 40 mg DAILY PO 03/11/16 09:00 04/10/16 08:59 Morphine Sulfate 2 mg 2 mg Q2H PRN IV 03/10/16 10:00 03/24/16 09:59 Sodium Chloride (Nss 1000ml) 1,000 ml @ 75 mls/hr [id number] IV 03/10/16 13:45 04/09/16 13:44 Atropine Sulfate (Atropine Sulfate 0.1MG/Ml Inj) 0.5 mg ONE PRN IV 03/10/16 13:45 04/09/16 13:44 Ondansetron HCl (Zofran Inj) 4 mg Q6H PRN IV 03/10/16 13:45 04/09/16 13:44 Aspirin (Ecotrin Tab) 81 mg QAM PO 03/11/16 09:00 04/10/16 08:59 Clopidogrel Bisulfate (plAVix TAB) 75 mg QAM PO 03/11/16 09:00 04/10/16 08:59 Atorvastatin Calcium (Lipitor Tab) 80 mg QAM PO 03/11/16 09:00 04/10/16 08:59 Metoprolol Tartrate (Lopressor Tab) 25 mg Q12 PO 03/10/16 21:00 04/09/16 20:59 Lisinopril (Zestril Tab) 2.5 mg QAM PO 03/11/16 09:00 04/10/16 08:59 Acetaminophen (Tylenol Tab) 650 mg Q4H PRN PO 03/10/16 13:45 04/09/16 13:44 Al Hydrox/Mg Hydrox/Simethicone (Maalox Max Susp) 15 ml Q4H PRN PO 03/10/16 13:45 04/09/16 13:44 Magnesium Hydroxide 30 ml 30 ml Q12H PRN PO 03/10/16 13:45 04/09/16 13:44 Eptifibatide (Integrilin Inj) 100 ml @ 6.8 mls/hr [id number] IV 03/10/16 17:30 03/11/16 06:00 Miscellaneous (Stop Order) 1 ea TODAY@0600 ONCE N/A 03/11/16 06:00 03/11/16 06:01 Review of Systems Cardiovascular: + chest pain (resloved after PCI) Physical Exam Date Time Temp Pulse Resp B/P Pulse Ox O2 Delivery O2 Flow Rate FiO2 03/10/16 16:13 66 109/61 97 03/10/16 16:00 95 Room Air 03/10/16 16:00 66 95 03/10/16 16:00 66 95 03/10/16 16:00 75 20 123/81 99 Room Air 03/10/16 15:58 64 106/61 94 03/10/16 15:58 64 106/61 94 03/10/16 15:45 60 93 03/10/16 15:45 60 93 03/10/16 15:44 66 100/56 95 03/10/16 15:44 66 100/56 95 03/10/16 15:30 64 98 03/10/16 15:30 64 98 03/10/16 15:28 62 111/64 97 03/10/16 15:28 62 111/64 97 03/10/16 15:15 75 98 03/10/16 15:15 75 98 03/10/16 15:14 75 95/79 96 03/10/16 15:14 75 95/79 96 03/10/16 15:00 69 99 03/10/16 15:00 69 99 03/10/16 14:58 67 118/68 96 03/10/16 14:58 67 118/68 96 03/10/16 14:45 67 97 03/10/16 14:45 67 97 03/10/16 14:44 67 120/72 97 03/10/16 14:44 67 120/72 97 03/10/16 14:30 64 98 03/10/16 14:30 64 98 03/10/16 14:28 67 116/67 97 03/10/16 14:28 67 116/67 97 03/10/16 14:15 62 97 03/10/16 14:15 62 97 03/10/16 14:14 69 102/63 97 03/10/16 14:00 67 98 03/10/16 13:59 62 18 109/68 97 Room Air 03/10/16 13:59 62 20 109/68 97 Room Air 03/10/16 13:56 36.2 62 16 100/63 97 Room Air 03/10/16 13:44 82 18 97 Room Air 03/10/16 13:44 99 03/10/16 13:44 82 03/10/16 13:25 62 16 97/60 98 Room Air 03/10/16 13:20 62 16 95/63 98 Room Air 03/10/16 13:15 65 16 112/80 98 Room Air 03/10/16 13:10 65 16 107/91 98 Room Air 03/10/16 11:37 36.9 68 18 100/53 99 03/10/16 11:22 68 18 99 03/10/16 11:18 100/53 03/10/16 11:12 63 23 98 03/10/16 11:08 115/57 03/10/16 11:02 64 20 100 03/10/16 10:58 97/54 03/10/16 10:52 64 21 96 03/10/16 10:48 103/55 03/10/16 10:47 65 24 105/53 95 Room Air 03/10/16 10:42 64 22 95 03/10/16 10:38 105/53 03/10/16 10:32 65 26 96 03/10/16 10:32 75 03/10/16 10:30 70 20 99/68 96 Room Air 03/10/16 10:29 99/68 03/10/16 10:22 64 19 96 03/10/16 10:18 116/71 03/10/16 10:12 64 29 95 03/10/16 10:08 104/71 03/10/16 10:05 63 18 120/66 97 Room Air 03/10/16 10:02 64 16 95 03/10/16 09:58 120/66 03/10/16 09:52 68 15 96 03/10/16 09:48 120/74 03/10/16 09:42 72 18 139/87 96 Room Air 03/10/16 09:42 69 19 96 03/10/16 09:38 139/87 03/10/16 09:32 69 18 94 03/10/16 09:28 127/79 03/10/16 09:22 71 26 94 03/10/16 09:18 136/83 03/10/16 09:12 72 22 95 03/10/16 09:11 149/75 03/10/16 09:06 72 18 145/83 96 Room Air 03/10/16 09:05 145/83 03/10/16 09:02 78 21 95 03/10/16 08:59 83 147/85 03/10/16 08:58 147/85 03/10/16 08:56 150/85 03/10/16 08:52 88 17 98 03/10/16 08:43 148/89 03/10/16 08:42 80 23 95 03/10/16 08:36 82 18 150/93 97 Room Air 03/10/16 08:32 81 27 98 03/10/16 08:30 150/93 03/10/16 08:17 96 Room Air 03/10/16 08:12 88 26 98 03/10/16 08:02 83 17 97 03/10/16 07:58 159/82 03/10/16 07:57 87 03/10/16 07:54 36.9 86 20 150/90 97 Room Air 03/10/16 07:52 150/90 General Appearance: WD/WN Head: normocephalic Eyes: normal inspection ENT: normal ENT inspection Neck: supple Respiratory/Chest: chest non-tender Cardiovascular: regular rate, rhythm Abdomen/GI: normal bowel sounds Extremities/Musculoskelatal: + pertinent finding (right wrist band post radial artery access for PCI. ) Laboratory Results Last 24 Hours Test 03/10/16 07:59 03/10/16 08:25 03/10/16 08:35 03/10/16 14:38 White Blood Count 10.49 K/uL 10.17 K/uL Red Blood Count 4.75 M/uL 4.30 M/uL Hemoglobin 14.9 g/dL 13.7 g/dL Hematocrit 42.4 % 38.6 % Mean Corpuscular Volume 89.3 fL 89.8 fL Mean Corpuscular Hemoglobin 31.4 pg 31.9 pg Mean Corpuscular Hemoglobin Concent 35.1 g/dl 35.5 g/dl Platelet Count 274 K/uL 237 K/uL Mean Platelet Volume 9.7 fL 9.7 fL Neutrophils (%) (Auto) 83.5 % 79.7 % Lymphocytes (%) (Auto) 9.9 % 14.0 % Monocytes (%) (Auto) 6.1 % 5.6 % Eosinophils (%) (Auto) 0.0 % 0.2 % Basophils (%) (Auto) 0.1 % 0.1 % Neutrophils # (Auto) 8.76 K/uL 8.11 K/uL Lymphocytes # (Auto) 1.04 K/uL 1.42 K/uL Monocytes # (Auto) 0.64 K/uL 0.57 K/uL Eosinophils # (Auto) 0.00 K/uL 0.02 K/uL Basophils # (Auto) 0.01 K/uL 0.01 K/uL RDW Standard Deviation 42.8 fL 43.8 fL RDW Coefficient of Variation 13.1 % 13.3 % Immature Granulocyte % (Auto) 0.4 % 0.4 % Immature Granulocyte # (Auto) 0.04 K/uL 0.04 K/uL Prothrombin Time 12.0 SECONDS Prothromb Time International Ratio 1.1 Activated Partial Thromboplast Time 29.9 SECONDS Partial Thromboplastin Ratio 1.2 Sodium Level 136 mmol/L 137 mmol/L Potassium Level 3.9 mmol/L 3.7 mmol/L Chloride Level 100 mmol/L 102 mmol/L Carbon Dioxide Level 23 mmol/L 24 mmol/L Anion Gap 13.0 mmol/L 11.0 mmol/L Blood Urea Nitrogen 13 mg/dl 13 mg/dl Creatinine 1.20 mg/dl 0.91 mg/dl Est Creatinine Clear Calc Drug Dose 45.7 ml/min 61.8 ml/min Estimated GFR () 65.8 91.9 Estimated GFR (Non- 56.8 79.3 BUN/Creatinine Ratio 10.7 14.1 Random Glucose 145 mg/dl 102 mg/dl Estimated Average Glucose 117 mg/dl Hemoglobin A1c 5.7 % Calcium Level 9.5 mg/dl 8.3 mg/dl Magnesium Level 2.0 mg/dl Total Bilirubin 0.9 mg/dl Aspartate Amino Transf (AST/SGOT) 94 U/L Alanine Aminotransferase (ALT/SGPT) 47 U/L Alkaline Phosphatase 70 U/L Total Creatine Kinase 900 U/L 4303 U/L Creatine Kinase MB 148.3 ng/ml 729.5 ng/ml Creatine Kinase MB Ratio 16.5 17.0 Troponin I 6.820 ng/ml > 200.000 ng/ml Total Protein 7.9 gm/dl Albumin 3.9 gm/dl Globulin 4.0 gm/dl Albumin/Globulin Ratio 1.0 Lipase 141 U/L Bedside Troponin I 4.650 ng/ml Influenza Type A Antigen Neg for Influ A Influenza Type B Antigen Neg for Influ B LDL Cholesterol Direct 88 mg/dl Assessment & Plan NSTEMI, s/p ELEAZAR in the LCX. chest pain free , improving. ACS , as above. Plan: 1- continue Integrilin drip and the rest of his cardiac meds per Dr. Hoyos. 2- monitor the pt in the ICU. 3- Oral intake. 4- bed rest. discussed with the nursing staff, no further rec from CCM standpoint. discussed with the pt and his family at the bed side. CCT 35 min.
[2016-03-10 18:57] LABS: CKMB/CK RATIO 16.2 (0-3.0)
[2016-03-10 20:06] LABS: URINE APPEARANCE CLEAR (CLEAR); URINE BILIRUBIN NEG (NEG); URINE COLOR YELLOW; URINE NITRITE NEG (NEG); URINE PH 7.5 (4.5-7.5); UROBILINOGEN NEG (NEG); ZZUR CULT IF INDIC CLEAN CATCH NO
[2016-03-10 20:21] LABS: URINE SPECIFIC GRAVITY > 1.045 (1.000-1.030)
[2016-03-10 20:23] LABS: MANUAL MICROSCOPIC REQUIRED? NO; REVIEW REQ? NO
[2016-03-10] MEDS: METOPROLOL TARTRATE 25 MG TAB PO SCH (20:50)
[2016-03-10 22:25] LABS: CKMB/CK RATIO 14.4 (0-3.0)
[2016-03-10 22:28] LABS: INFLUENZA A PCR Neg for Influ A (NEG); INFLUENZA B PCR Neg for Influ B (NEG)
--- NOTE | 2016-03-10 22:42 | CARDIOLOGY CONSULTATION ---
DATE OF CONSULTATION: 03/10/2016 REFERRING PHYSICIAN: Kiel Jamison DO, Angela Urban, PA-C. PRIMARY PHYSICIAN: None. HISTORY OF PRESENT ILLNESS: The patient is an 81-year-old white male. He denies any significant past medical history. Specifically, no history of heart disease, diabetes mellitus, hypertension, or dyslipidemia. He was in his usual state of health, until, late last evening while at rest, he developed a retrosternal and left parasternal tightness. This tightness persisted throughout the night and into the morning. The intensity would vary. It would sometimes radiate into his right jaw and left upper arm. On a few episodes, he had associated diaphoresis. No associated dyspnea. No palpitations or nausea. No lightheadedness. He did have one episode where he felt like his vision was "blurry". Because these symptoms persisted, his daughter brought him to the Emergency Department this morning by private motor vehicle. On arrival to the Emergency Department, he was complaining of chest discomfort. His initial electrocardiogram revealed normal sinus rhythm, ST depressions in leads 2, 3, aVF. Nonspecific ST abnormalities in V5 and V6. The patient, on arrival to the Emergency Department, had a blood pressure of 150/90 and a pulse of 86. He was treated with intravenous heparin, nitroglycerin, metoprolol. With these medications, his chest discomfort intensity decreased. The discomfort then ultimately resolved. A repeat electrocardiogram showed improvement in the inferior ST depressions compared to the earlier electrocardiogram. I was called to see the patient in the Emergency Department by the Emergency Department staff. On my arrival to the room, the patient appeared to be in no distress. He had been hemodynamically stable since arrival. No arrhythmias. No evidence of heart failure. When I spoke with him, he had mild residual left-sided discomfort. However, he states that this would be fleeting and lasting only several seconds at a time. His electrocardiogram revealed no ST segment elevations. His initial CK total was 900 with an MB of 148.3. His troponin I was 6.820. It was felt that the patient had had a non-ST elevation myocardial infarction with onset in the late evening, March 09. As he was hemodynamically stable, with a stable rhythm, and was not in any heart failure, there was no indication for an emergency cardiac catheterization at that time. He had no ST segment elevations, diagnostic of an ST elevation myocardial infarction. As stated above, his chest discomfort, actually, resolved in the Emergency Department. When helicopter transport became available, (if it was necessary in the event of an adverse event during cardiac catheterization/PCI), the patient was brought to the cardiac catheterization laboratory for elective cardiac catheterization. In the Emergency Department, after I had seen the patient, he was also started on intravenous Integrilin. On arrival to the laborer high density press, he was very stable. He had no complaints of any chest pain. No other cardiac complaints. An echocardiogram was performed prior to the catheterization procedure. It revealed [id number] normal overall LV systolic function. LV ejection fraction estimated to be 50%-55%. There was [id number] posterior hypokinesis, lateral hypokinesis, and basal inferior hypokinesis. Catheterization was performed via a 6-Austrian sheath in the right radial artery. He had a right-dominant circulation. There was 20% proximal LAD and 50% mid-LAD stenoses. There are other milder stenoses in the LAD. The left circumflex was totally occluded proximally. The right coronary artery had mild diffuse atherosclerotic disease. Collateral flow was present from the right coronary artery to the distal left circumflex. Two marginal branches of the left circumflex were visualized via this collateral flow. As the patient has had varying intensity chest discomfort throughout the night, collateral flow to the left circumflex system from the right coronary artery, and estimated duration of the acute coronary process being approximately 13 hours, it was felt best to proceed to intervention to the left circumflex. It was felt that the patient's chest discomfort had resolved because of decreased myocardial oxygen demand from the nitroglycerin and beta-chidi. A guidewire easily crossed the arc left circumflex occlusion. Balloon angioplasty was then performed to the proximal left circumflex with a 2.5 x 12 mm compliant balloon. CHRISTAL 3 flow was established in the left circumflex system. Prior to intervention, dye was injected through the balloon catheter after the guidewire was withdrawn. It was confirmed that the catheter was within the lumen of the left circumflex. Following balloon angioplasty, 2.25 x 18 mm Medtronic Resolute drug-eluting stent was deployed in the proximal left circumflex. This was deployed across the origin of a left circumflex marginal. The proximal and mid segments of stent were postdilated with a 2.75 mm diameter noncompliant balloon. The residual stenosis at the stent site was 0%-10%. There was no evidence of dissection, thrombus, perforation, or distal embolic event. CHRISTAL 3 flow was present throughout the left circumflex and its branches. The early mid circumflex gave rise to the marginal. This is the vessel over which the prior stent was deployed. When flow was reestablished in the marginal after balloon angioplasty, it had evidence of a 50% ostial stenosis. This stenosis remained unchanged following stent deployment. There was no evidence of dissection, thrombus, perforation, distal embolic event. The patient was hemodynamically stable throughout the procedure. He had no arrhythmias. He had no complaints of chest pain during or following the procedure. Hemostasis was obtained with application of a TerumAstaro TR band. Intravenous heparin was discontinued following completion of procedure. He was to remain on intravenous Integrilin for 18 hours. He was given a loading dose of clopidogrel 60 mg, post procedure. The patient was admitted to the intensive care unit. He was again seen by me this evening. He is resting well. No complaints of any chest pain since the PCI. No orthopnea or dyspnea. His only complaint is decreased appetite and fatigue. No pain at his right radial catheterization site. No evidence or symptoms of arterial insufficiency in his right hand. PAST MEDICAL HISTORY: 1. He denies any chronic medical illnesses. 2. History of nephrolithiasis in 2007, treated with lithotripsy. 3. History of left ureteral stent in 2006. MEDICATIONS AT THE TIME OF ADMISSION: None. ALLERGIES: None. SOCIAL HISTORY: The patient is a . He was alone in a farmhouse in [place]. He still works manager department as a hoover. He has at least 2 daughters, who live in the area. They are in close contact with him. One of his grandsons stays with him at night. He has never smoked cigarettes. He does not drink alcohol. FAMILY HISTORY: No family history of premature coronary artery disease. Both of his father and grandfather at late ages from unspecified heart disease. REVIEW OF SYSTEMS: 1. As above. 2. Recent URI, manifested by a nonproductive cough, runny nose, and nasal and sinus congestion. The cough has resolved. No fevers or chills. 3. No bleeding complaints. 4. No cerebrovascular or peripheral vascular complaints. 5. No GI or urinary complaints. 6. No orthopnea, PND, palpitations, lightheadedness, syncope, or peripheral edema. 7. A 10-point review of systems, otherwise, negative other than per the above. PHYSICAL EXAMINATION: GENERAL: In the Emergency Department when I saw the patient, he did appear to be in no distress. VITAL SIGNS: His blood pressure was 120/74. Pulse 68. Pulse oximetry on room air 97%. HEAD: Normal. EYES: Pupils equal and round. Anicteric. Conjunctivae normal. No xanthelasma. NECK: No jugular venous distention. Carotids 2/2 bilaterally. Normal upstroke. No bruits. LUNGS: Normal respiratory effort. Clear. No rales or wheezes. HEART: Regular rate and rhythm. S1, S2 normal. No S3 or S4. No murmur or rub. PMI normal. No lifts or heaves. ABDOMEN: Soft. Nontender. No palpable masses or organomegaly. No bruits. CHEST WALL: Point tenderness over the lower sternum and xiphoid process (the patient states that he fell under the [employer] organ last week. He was trying to retrieve his song book. 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 Other churchgoers then attempted to pull him out from underneath the organ. He states that after this, he had tenderness in his lower retrosternal region). EXTREMITIES: No pretibial edema. No cyanosis or clubbing. PULSES: Radial, dorsalis pedis, and posterior tibial pulses strongly palpable. NEUROLOGICAL: Alert and oriented x3. Motor grossly intact. PSYCHIATRIC: Affect is normal. DATA: Electrocardiogram, post PCI, with normal sinus rhythm, mild nonspecific ST depressions, leads 2, 3, aVF. Chest x-ray revealed no congestive heart failure. LABORATORY DATA: Post-PCI labs with WBC 10.17, hemoglobin 13.7, hematocrit 38.6, platelet count 237. On admission to the Emergency Department, the hemoglobin was 14.9 and the platelet count was 274. Post-PCI metabolic profile was sodium 137, potassium 3.7, chloride 102, carbon dioxide 24, BUN 13, creatinine 0.91, random glucose 102. His admission BUN was 13 and creatinine was 1.2. AST 94, ALT 47. Post-PCI CK total 4303 with MB of 729.5. Troponin I greater than 200. Direct LDL 88. Hemoglobin A1c 5.7. ASSESSMENT: 1. Status post non-ST elevation myocardial infarction, secondary to a totally occluded proximal left circumflex. Onset of anginal type symptoms last evening at approximately 10:00 p.m. Intermittent chest discomfort since then. Subsequent resolution of the chest discomfort after starting intravenous heparin, intravenous nitroglycerin, and intravenous metoprolol in the Emergency Department. He did have collateral flow from the right coronary to the left circumflex. This would explain how the patient could have chest discomfort throughout the night. His electrocardiogram revealed inferolateral changes, suggestive of ischemia. He certainly did not have any ST segment elevations diagnostic of an ST elevation myocardial infarction. He had no ST segment elevations on his electrocardiogram. 2. No evidence of any ventricular arrhythmias prior to or following intervention. No hemodynamic instability. No evidence of congestive heart failure by signs, symptoms, or chest x-ray. 3. Status post successful intervention to proximal left circumflex occlusion. Deployment of a drug-eluting stent. No coronary, cardiac, or vascular complications. 4. Marked elevation in cardiac enzymes, post PCI. This reflects washout from the left circumflex. The left circumflex had an extensive distribution along the lateral and posterior aspects of the left ventricle. On echocardiogram, he has low normal LV systolic function. There are wall motion abnormalities, consistent with the distribution of the left circumflex. 5. No obvious coronary artery disease risk factors. Hemoglobin A1c mildly elevated. No history of hypertension. Direct LDL is actually good. HDL is pending. 6. No signs or symptoms of cerebrovascular disease or peripheral vascular disease. 7. No significant change in platelet count or hemoglobin, post PCI and administration of intravenous Integrilin. PLAN: 1. Intravenous Integrilin for at least 18 hours. 2. The patient was given 60 mg of clopidogrel post PCI. He should remain on aspirin and clopidogrel for a minimum of 6 months. Ideally for 1 year. He should remain on aspirin therapy indefinitely. 3. He will be started on high-dose atorvastatin for its acute beneficial effect on endothelial function. He will remain on high-dose statin therapy in light of his coronary artery disease. 4. Low-dose beta-chidi and lisinopril, as tolerated by heart rate and blood pressure. 5. Continue checking cardiac enzymes till they peak. 6. Increase activity as tolerated. 7. Transfer to telemetry unit tomorrow, if he is stable overnight. The above assessment, findings, and recommendations were discussed with the hospitalist team by me. Thank you for asking me to see this patient in cardiology consultation. HOLA
[2016-03-11] VITALS (15 sets, daily range): BP systolic 91–117; BP diastolic 51–69; PULSE 59–77; TEMP 36.5–36.8; O2SAT 91–99
[2016-03-11 03:02] LABS: CKMB/CK RATIO 12.6 (0-3.0)
[2016-03-11] MEDS: SODIUM CHLORIDE 0.9% 1000ML 1,000 ML IV SCH ×2 (04:00→16:25)
[2016-03-11 05:39] LABS: BASO % 0.3 %; BASO ABS # 0.02 K/uL (0-0.2); COMPLETE YES; EOS % 0.6 %; HEMATOCRIT 37.5 % (42-52); IG% 0.3 %; LYMPH % 17.1 %; LYMPH ABS # 1.33 K/uL (1.2-3.4); MEAN CELL VOLUME 89.9 fL (80-100); MEAN CORPUSCULAR HEMOGLOBIN 31.4 pg (25-34); MEAN CORPUSCULAR HGB CONC 34.9 g/dl (32-36); MEAN PLATELET VOLUME 9.9 fL (7.4-10.4); MONO % 9.1 %; NEUT % 72.6 %; PLATELET COUNT 215 K/uL (130-400); RED BLOOD COUNT 4.17 M/uL (4.7-6.1); WHITE BLOOD COUNT 7.76 K/uL (4.8-10.8)
[2016-03-11] MEDS ORDERED: Integrelin infusion --> STOP ORDER ONE (06:00)
[2016-03-11 06:11] LABS: BUN/CREATININE RATIO 12.1 (10-20); CALCIUM 8.3 mg/dl (8.5-10.1); CREATININE 0.88 mg/dl (0.60-1.40)
[2016-03-11 06:48] LABS: CHOLESTEROL/HDL RATIO 3.8; CKMB/CK RATIO 10.5 (0-3.0)
[2016-03-11] MEDS: CLOPIDOGREL BISULFATE 75 MG TAB PO SCH (08:53)
[2016-03-11] MEDS: METOPROLOL TARTRATE 25 MG TAB PO SCH ×2 (08:53→21:13)
[2016-03-11] MEDS: ASPIRIN 81 MG ECTAB PO SCH (08:53)
[2016-03-11] MEDS ORDERED: ASPIRIN 81 MG ECTAB PO SCH (09:00)
[2016-03-11] MEDS ORDERED: ATORVASTATIN 20 MG TAB PO SCH (09:00)
[2016-03-11] MEDS: ATORVASTATIN 40 MG TAB PO SCH (09:29)
[2016-03-11] MEDS: PANTOprazole SOD 40 MG TAB PO SCH (09:30)
[2016-03-11] MEDS: LISINOPRIL 5 MG TAB PO SCH (09:41)
--- NOTE | 2016-03-11 09:41 | Critical Care Progress Note ---
Critical Care Progress Note Date of Service Mar 11, 2016. Attending Dr. Fischer Subjective asymptomatic today. Objective as above. Assessment & Plan NSTEMI, s/p ELEAZAR to the RCA. plan; 1- off integrilin. 2- on cardiac regimen per cardiology, appreciate the input. 3- no further rec from CCM standpoint. 4- disposition per cardiology. discussed on rounds in details. time spent in eval and reviewing the pt care was 35 min. Data Medications: Current Inpatient Medications Medications (Trade) Dose Ordered Sig/Carol Route Start Time Stop Time Status Last Admin Dose Admin Pantoprazole Sodium (Protonix Tab) 40 mg DAILY PO 03/11/16 09:00 04/10/16 08:59 03/11/16 09:30 40 MG Morphine Sulfate 2 mg 2 mg Q2H PRN IV 03/10/16 10:00 03/24/16 09:59 Sodium Chloride (Nss 1000ml) 1,000 ml @ 75 mls/hr [id number] IV 03/10/16 13:45 04/09/16 13:44 03/11/16 04:00 75 MLS/HR Atropine Sulfate (Atropine Sulfate 0.1MG/Ml Inj) 0.5 mg ONE PRN IV 03/10/16 13:45 04/09/16 13:44 Ondansetron HCl (Zofran Inj) 4 mg Q6H PRN IV 03/10/16 13:45 04/09/16 13:44 Aspirin (Ecotrin Tab) 81 mg QAM PO 03/11/16 09:00 04/10/16 08:59 03/11/16 08:53 81 MG Clopidogrel Bisulfate (plAVix TAB) 75 mg QAM PO 03/11/16 09:00 04/10/16 08:59 03/11/16 08:53 75 MG Atorvastatin Calcium (Lipitor Tab) 80 mg QAM PO 03/11/16 09:00 04/10/16 08:59 03/11/16 09:29 80 MG Metoprolol Tartrate (Lopressor Tab) 25 mg Q12 PO 03/10/16 21:00 04/09/16 20:59 03/11/16 08:53 25 MG Lisinopril (Zestril Tab) 2.5 mg QAM PO 03/11/16 09:00 04/10/16 08:59 Acetaminophen (Tylenol Tab) 650 mg Q4H PRN PO 03/10/16 13:45 04/09/16 13:44 Al Hydrox/Mg Hydrox/Simethicone (Maalox Max Susp) 15 ml Q4H PRN PO 03/10/16 13:45 04/09/16 13:44 Magnesium Hydroxide (Milk Of Magnesia Susp) 30 ml Q12H PRN PO 03/10/16 13:45 04/09/16 13:44 I & O: 24-Hour Column 03/11/16 08:00 Intake Total 3479 ml Output Total 1850 ml Balance 1629 ml Vital Signs: Date Time Temp Pulse Resp B/P Pulse Ox O2 Delivery O2 Flow Rate FiO2 03/11/16 08:00 36.8 74 18 111/60 99 Room Air 03/11/16 08:00 96 Room Air 03/11/16 06:00 36.8 62 16 95/56 94 Room Air 03/11/16 04:00 36.5 59 16 101/54 95 Room Air 03/11/16 04:00 95 Room Air 03/11/16 02:00 36.6 62 14 100/61 94 Room Air 03/11/16 00:00 36.6 59 16 102/54 93 Room Air 03/11/16 00:00 93 Room Air 03/10/16 22:00 60 16 110/63 96 Room Air 03/10/16 21:00 68 16 107/69 94 Room Air 03/10/16 20:00 36.4 66 16 107/65 96 Room Air 03/10/16 20:00 96 Room Air 03/10/16 19:00 67 18 102/57 96 Room Air 03/10/16 18:29 36.2 65 18 102/61 94 Room Air 03/10/16 18:00 65 18 102/61 94 Room Air 03/10/16 17:29 61 18 102/58 94 Room Air 03/10/16 17:00 71 18 98/47 95 Room Air 03/10/16 16:29 81 96 03/10/16 16:29 68 123/81 95 Room Air 03/10/16 16:13 66 109/61 97 03/10/16 16:00 95 Room Air 03/10/16 16:00 66 95 03/10/16 16:00 66 95 03/10/16 16:00 75 20 123/81 99 Room Air 03/10/16 15:58 64 106/61 94 03/10/16 15:58 64 106/61 94 03/10/16 15:45 60 93 03/10/16 15:45 60 93 03/10/16 15:44 66 100/56 95 03/10/16 15:44 66 100/56 95 03/10/16 15:30 64 98 03/10/16 15:30 64 98 03/10/16 15:28 62 111/64 97 03/10/16 15:28 62 111/64 97 03/10/16 15:15 75 98 03/10/16 15:15 75 98 03/10/16 15:14 75 95/79 96 03/10/16 15:14 75 95/79 96 03/10/16 15:00 69 99 03/10/16 15:00 69 99 03/10/16 14:58 67 118/68 96 03/10/16 14:58 67 118/68 96 03/10/16 14:45 67 97 03/10/16 14:45 67 97 03/10/16 14:44 67 120/72 97 03/10/16 14:44 67 120/72 97 03/10/16 14:30 64 98 03/10/16 14:30 64 98 03/10/16 14:28 67 116/67 97 03/10/16 14:28 67 116/67 97 03/10/16 14:15 62 97 03/10/16 14:15 62 97 03/10/16 14:14 69 102/63 97 03/10/16 14:00 67 98 03/10/16 13:59 62 18 109/68 97 Room Air 03/10/16 13:59 62 20 109/68 97 Room Air 03/10/16 13:56 36.2 62 16 100/63 97 Room Air 03/10/16 13:44 82 18 97 Room Air 03/10/16 13:44 99 03/10/16 13:44 82 03/10/16 13:25 62 16 97/60 98 Room Air 03/10/16 13:20 62 16 95/63 98 Room Air 03/10/16 13:15 65 16 112/80 98 Room Air 03/10/16 13:10 65 16 107/91 98 Room Air 03/10/16 11:37 36.9 68 18 100/53 99 03/10/16 11:22 68 18 99 03/10/16 11:18 100/53 03/10/16 11:12 63 23 98 03/10/16 11:08 115/57 03/10/16 11:02 64 20 100 03/10/16 10:58 97/54 03/10/16 10:52 64 21 96 03/10/16 10:48 103/55 03/10/16 10:47 65 24 105/53 95 Room Air 03/10/16 10:42 64 22 95 03/10/16 10:38 105/53 03/10/16 10:32 65 26 96 03/10/16 10:32 75 03/10/16 10:30 70 20 99/68 96 Room Air 03/10/16 10:29 99/68 03/10/16 10:22 64 19 96 03/10/16 10:18 116/71 03/10/16 10:12 64 29 95 03/10/16 10:08 104/71 03/10/16 10:05 63 18 120/66 97 Room Air 03/10/16 10:02 64 16 95 03/10/16 09:58 120/66 03/10/16 09:52 68 15 96 03/10/16 09:48 120/74 03/10/16 09:42 72 18 139/87 96 Room Air 03/10/16 09:42 69 19 96 03/10/16 09:38 139/87 S1S2 RRR. lungs clear. abdomen is benign. no edema. neuro is non focal. Laboratory Results: Last 24 Hours Test 03/10/16 12:07 03/10/16 12:16 03/10/16 12:28 03/10/16 12:49 Kaolin Activated Coagulation Time 168 SECONDS 173 SECONDS 255 SECONDS 281 SECONDS Test 03/10/16 14:38 03/10/16 18:08 03/10/16 19:45 03/10/16 20:56 White Blood Count 10.17 K/uL Red Blood Count 4.30 M/uL Hemoglobin 13.7 g/dL Hematocrit 38.6 % Mean Corpuscular Volume 89.8 fL Mean Corpuscular Hemoglobin 31.9 pg Mean Corpuscular Hemoglobin Concent 35.5 g/dl Platelet Count 237 K/uL Mean Platelet Volume 9.7 fL Neutrophils (%) (Auto) 79.7 % Lymphocytes (%) (Auto) 14.0 % Monocytes (%) (Auto) 5.6 % Eosinophils (%) (Auto) 0.2 % Basophils (%) (Auto) 0.1 % Neutrophils # (Auto) 8.11 K/uL Lymphocytes # (Auto) 1.42 K/uL Monocytes # (Auto) 0.57 K/uL Eosinophils # (Auto) 0.02 K/uL Basophils # (Auto) 0.01 K/uL RDW Standard Deviation 43.8 fL RDW Coefficient of Variation 13.3 % Immature Granulocyte % (Auto) 0.4 % Immature Granulocyte # (Auto) 0.04 K/uL Sodium Level 137 mmol/L Potassium Level 3.7 mmol/L Chloride Level 102 mmol/L Carbon Dioxide Level 24 mmol/L Anion Gap 11.0 mmol/L Blood Urea Nitrogen 13 mg/dl Creatinine 0.91 mg/dl Est Creatinine Clear Calc Drug Dose 61.8 ml/min Estimated GFR () 91.9 Estimated GFR (Non- 79.3 BUN/Creatinine Ratio 14.1 Random Glucose 102 mg/dl Calcium Level 8.3 mg/dl Total Creatine Kinase 4303 U/L 4197 U/L Creatine Kinase MB 729.5 ng/ml 680.5 ng/ml Creatine Kinase MB Ratio 17.0 16.2 Troponin I > 200.000 ng/ml > 200.000 ng/ml LDL Cholesterol Direct 88 mg/dl Urine Color YELLOW Urine Appearance CLEAR Urine pH 7.5 Urine Specific [place] > 1.045 Urine Protein NEG Urine Glucose (UA) NEG Urine Ketones NEG Urine Occult Blood NEG Urine Nitrite NEG Urine Bilirubin NEG Urine Urobilinogen NEG Urine Leukocyte Esterase NEG Influenza Type A (RT-PCR) Neg for Influ A Influenza Type B (RT-PCR) Neg for Influ B Bedside Glucose 100 mg/dl Test 03/10/16 21:31 03/11/16 01:49 03/11/16 05:23 Total Creatine Kinase 3391 U/L 2564 U/L 1994 U/L Creatine Kinase MB 488.8 ng/ml 322.7 ng/ml 210.1 ng/ml Creatine Kinase MB Ratio 14.4 12.6 10.5 Troponin I 156.000 ng/ml 107.000 ng/ml 83.100 ng/ml White Blood Count 7.76 K/uL Red Blood Count 4.17 M/uL Hemoglobin 13.1 g/dL Hematocrit 37.5 % Mean Corpuscular Volume 89.9 fL Mean Corpuscular Hemoglobin 31.4 pg Mean Corpuscular Hemoglobin Concent 34.9 g/dl Platelet Count 215 K/uL Mean Platelet Volume 9.9 fL Neutrophils (%) (Auto) 72.6 % Lymphocytes (%) (Auto) 17.1 % Monocytes (%) (Auto) 9.1 % Eosinophils (%) (Auto) 0.6 % Basophils (%) (Auto) 0.3 % Neutrophils # (Auto) 5.63 K/uL Lymphocytes # (Auto) 1.33 K/uL Monocytes # (Auto) 0.71 K/uL Eosinophils # (Auto) 0.05 K/uL Basophils # (Auto) 0.02 K/uL RDW Standard Deviation 44.6 fL RDW Coefficient of Variation 13.6 % Immature Granulocyte % (Auto) 0.3 % Immature Granulocyte # (Auto) 0.02 K/uL Sodium Level 141 mmol/L Potassium Level 4.0 mmol/L Chloride Level 108 mmol/L Carbon Dioxide Level 23 mmol/L Anion Gap 10.0 mmol/L Blood Urea Nitrogen 11 mg/dl Creatinine 0.88 mg/dl Est Creatinine Clear Calc Drug Dose 63.9 ml/min Estimated GFR () 94.0 Estimated GFR (Non- 81.1 BUN/Creatinine Ratio 12.1 Random Glucose 94 mg/dl Calcium Level 8.3 mg/dl Magnesium Level 2.0 mg/dl Triglycerides Level 84 mg/dl Cholesterol Level 113 mg/dl HDL Cholesterol 30 mg/dl LDL Cholesterol, Calculated 66 mg/dl VLDL Cholesterol, Calculated 17 mg/dl Cholesterol/HDL Ratio 3.8
[2016-03-11] MEDS ORDERED: NITROGLYCERIN 0.4 MG SL PER TAB CHARGE SL PRN (12:00)
--- NOTE | 2016-03-11 14:04 | Hospitalist Progress Note ---
Hospitalist Progress Note Date of Service Mar 11, 2016. (Jen Amor PA-C) Subjective Pt evaluation today including: conversation w/ patient, physical exam, chart review, lab review, review of studies, conversation w/ budget consultant, review of inpatient medication list Pt fatigued. Did not sleep well last night. Denies any anginal symptoms such as chest pain, chest pressure, shortness of breath, heart palpitations, dizziness, nausea or sweating Additional Comments: 6 system review negative. Please see pertinent positives in the history of present illness section. (Jen Amor PA-C) Objective Vital Signs Date Time Temp Pulse Resp B/P Pulse Ox O2 Delivery O2 Flow Rate FiO2 03/11/16 12:00 68 20 115/63 95 Room Air 03/11/16 12:00 91 Room Air 03/11/16 11:15 64 18 102/56 94 Room Air 03/11/16 10:00 72 18 116/69 97 Room Air 03/11/16 08:00 36.8 74 18 111/60 99 Room Air 03/11/16 08:00 Room Air 03/11/16 08:00 96 Room Air 03/11/16 06:00 36.8 62 16 95/56 94 Room Air 03/11/16 04:00 36.5 59 16 101/54 95 Room Air 03/11/16 04:00 95 Room Air 03/11/16 02:00 36.6 62 14 100/61 94 Room Air 03/11/16 00:00 36.6 59 16 102/54 93 Room Air 03/11/16 00:00 93 Room Air 03/10/16 22:00 60 16 110/63 96 Room Air 03/10/16 21:00 68 16 107/69 94 Room Air 03/10/16 20:00 36.4 66 16 107/65 96 Room Air 03/10/16 20:00 96 Room Air 03/10/16 19:00 67 18 102/57 96 Room Air 03/10/16 18:29 36.2 65 18 102/61 94 Room Air 03/10/16 18:00 65 18 102/61 94 Room Air 03/10/16 17:29 61 18 102/58 94 Room Air 03/10/16 17:00 71 18 98/47 95 Room Air 03/10/16 16:29 81 96 03/10/16 16:29 68 123/81 95 Room Air 03/10/16 16:13 66 109/61 97 03/10/16 16:00 95 Room Air 03/10/16 16:00 66 95 03/10/16 16:00 66 95 03/10/16 16:00 75 20 123/81 99 Room Air 03/10/16 15:58 64 106/61 94 03/10/16 15:58 64 106/61 94 03/10/16 15:45 60 93 03/10/16 15:45 60 93 03/10/16 15:44 66 100/56 95 03/10/16 15:44 66 100/56 95 03/10/16 15:30 64 98 03/10/16 15:30 64 98 03/10/16 15:28 62 111/64 97 03/10/16 15:28 62 111/64 97 03/10/16 15:15 75 98 03/10/16 15:15 75 98 03/10/16 15:14 75 95/79 96 03/10/16 15:14 75 95/79 96 03/10/16 15:00 69 99 03/10/16 15:00 69 99 03/10/16 14:58 67 118/68 96 03/10/16 14:58 67 118/68 96 03/10/16 14:45 67 97 03/10/16 14:45 67 97 03/10/16 14:44 67 120/72 97 03/10/16 14:44 67 120/72 97 03/10/16 14:30 64 98 03/10/16 14:30 64 98 03/10/16 14:28 67 116/67 97 03/10/16 14:28 67 116/67 97 03/10/16 14:15 62 97 03/10/16 14:15 62 97 03/10/16 14:14 69 102/63 97 03/10/16 14:00 67 98 03/10/16 13:59 62 18 109/68 97 Room Air 03/10/16 13:59 62 20 109/68 97 Room Air (Jen Amor PA-C) Physical Exam General Appearance: no apparent distress Neck: no JVD Respiratory/Chest: lungs clear Cardiovascular: regular rate, rhythm Abdomen: normal bowel sounds, non tender, soft Extremities: non-tender, normal inspection Neurologic/Psychiatric: no motor/sensory deficits, oriented x 3 Skin: warm/dry (Jen Amro PA-C) Laboratory Results 03/11/16 05:23 Red Blood Count 4.17, Mean Corpuscular Volume 89.9, Mean Corpuscular Hemoglobin 31.4, Mean Corpuscular Hemoglobin Concent 34.9, Mean Platelet Volume 9.9, Neutrophils (%) (Auto) 72.6, Lymphocytes (%) (Auto) 17.1, Monocytes (%) (Auto) 9.1, Eosinophils (%) (Auto) 0.6, Basophils (%) (Auto) 0.3, Neutrophils # (Auto) 5.63, Lymphocytes # (Auto) 1.33, Monocytes # (Auto) 0.71, Eosinophils # (Auto) 0.05, Basophils # (Auto) 0.02 03/11/16 05:23 Test 03/10/16 14:38 03/10/16 19:45 03/10/16 20:56 03/11/16 05:23 LDL Cholesterol Direct 88 mg/dl Urine Color YELLOW Urine Appearance CLEAR (CLEAR) Urine pH 7.5 (4.5-7.5) Urine Specific [place] > 1.045 (1.000-1.030) Urine Protein NEG (NEG) Urine Glucose (UA) NEG (NEG) Urine Ketones NEG (NEG) Urine Occult Blood NEG (NEG) Urine Nitrite NEG (NEG) Urine Bilirubin NEG (NEG) Urine Urobilinogen NEG (NEG) Urine Leukocyte Esterase NEG (NEG) Influenza Type A (RT-PCR) Neg for Influ A (NEG) Influenza Type B (RT-PCR) Neg for Influ B (NEG) Bedside Glucose 100 mg/dl (70-99) White Blood Count 7.76 K/uL (4.8-10.8) Red Blood Count 4.17 M/uL (4.7-6.1) Hemoglobin 13.1 g/dL (14.0-18.0) Hematocrit 37.5 % (42-52) Mean Corpuscular Volume 89.9 fL (80-100) Mean Corpuscular Hemoglobin 31.4 pg (25-34) Mean Corpuscular Hemoglobin Concent 34.9 g/dl (32-36) Platelet Count 215 K/uL (130-400) Mean Platelet Volume 9.9 fL (7.4-10.4) Neutrophils (%) (Auto) 72.6 % Lymphocytes (%) (Auto) 17.1 % Monocytes (%) (Auto) 9.1 % Eosinophils (%) (Auto) 0.6 % Basophils (%) (Auto) 0.3 % Neutrophils # (Auto) 5.63 K/uL (1.4-6.5) Lymphocytes # (Auto) 1.33 K/uL (1.2-3.4) Monocytes # (Auto) 0.71 K/uL (0.11-0.59) Eosinophils # (Auto) 0.05 K/uL (0-0.5) Basophils # (Auto) 0.02 K/uL (0-0.2) RDW Standard Deviation 44.6 fL (36.4-46.3) RDW Coefficient of Variation 13.6 % (11.5-14.5) Immature Granulocyte % (Auto) 0.3 % Immature Granulocyte # (Auto) 0.02 K/uL (0.00-0.02) Anion Gap 10.0 mmol/L (3-11) Est Creatinine Clear Calc Drug Dose 63.9 ml/min Estimated GFR () 94.0 Estimated GFR (Non- 81.1 BUN/Creatinine Ratio 12.1 (10-20) Calcium Level 8.3 mg/dl (8.5-10.1) Magnesium Level 2.0 mg/dl (1.8-2.4) Total Creatine Kinase 1994 U/L (39-308) Creatine Kinase MB 210.1 ng/ml (0.5-3.6) Creatine Kinase MB Ratio 10.5 (0-3.0) Triglycerides Level 84 mg/dl (0-150) Cholesterol Level 113 mg/dl (0-200) HDL Cholesterol 30 mg/dl LDL Cholesterol, Calculated 66 mg/dl VLDL Cholesterol, Calculated 17 mg/dl Cholesterol/HDL Ratio 3.8 Test 03/11/16 12:08 Troponin I 51.900 ng/ml (0-0.045) Last 24 Hours Test 03/10/16 14:38 03/10/16 18:08 03/10/16 19:45 03/10/16 20:56 White Blood Count 10.17 K/uL Red Blood Count 4.30 M/uL Hemoglobin 13.7 g/dL Hematocrit 38.6 % Mean Corpuscular Volume 89.8 fL Mean Corpuscular Hemoglobin 31.9 pg Mean Corpuscular Hemoglobin Concent 35.5 g/dl Platelet Count 237 K/uL Mean Platelet Volume 9.7 fL Neutrophils (%) (Auto) 79.7 % Lymphocytes (%) (Auto) 14.0 % Monocytes (%) (Auto) 5.6 % Eosinophils (%) (Auto) 0.2 % Basophils (%) (Auto) 0.1 % Neutrophils # (Auto) 8.11 K/uL Lymphocytes # (Auto) 1.42 K/uL Monocytes # (Auto) 0.57 K/uL Eosinophils # (Auto) 0.02 K/uL Basophils # (Auto) 0.01 K/uL RDW Standard Deviation 43.8 fL RDW Coefficient of Variation 13.3 % Immature Granulocyte % (Auto) 0.4 % Immature Granulocyte # (Auto) 0.04 K/uL Sodium Level 137 mmol/L Potassium Level 3.7 mmol/L Chloride Level 102 mmol/L Carbon Dioxide Level 24 mmol/L Anion Gap 11.0 mmol/L Blood Urea Nitrogen 13 mg/dl Creatinine 0.91 mg/dl Est Creatinine Clear Calc Drug Dose 61.8 ml/min Estimated GFR () 91.9 Estimated GFR (Non- 79.3 BUN/Creatinine Ratio 14.1 Random Glucose 102 mg/dl Calcium Level 8.3 mg/dl Total Creatine Kinase 4303 U/L 4197 U/L Creatine Kinase MB 729.5 ng/ml 680.5 ng/ml Creatine Kinase MB Ratio 17.0 16.2 Troponin I > 200.000 ng/ml > 200.000 ng/ml LDL Cholesterol Direct 88 mg/dl Urine Color YELLOW Urine Appearance CLEAR Urine pH 7.5 Urine Specific [place] > 1.045 Urine Protein NEG Urine Glucose (UA) NEG Urine Ketones NEG Urine Occult Blood NEG Urine Nitrite NEG Urine Bilirubin NEG Urine Urobilinogen NEG Urine Leukocyte Esterase NEG Influenza Type A (RT-PCR) Neg for Influ A Influenza Type B (RT-PCR) Neg for Influ B Bedside Glucose 100 mg/dl Test 03/10/16 21:31 03/11/16 01:49 03/11/16 05:23 03/11/16 12:08 Total Creatine Kinase 3391 U/L 2564 U/L 1994 U/L Creatine Kinase MB 488.8 ng/ml 322.7 ng/ml 210.1 ng/ml Creatine Kinase MB Ratio 14.4 12.6 10.5 Troponin I 156.000 ng/ml 107.000 ng/ml 83.100 ng/ml 51.900 ng/ml White Blood Count 7.76 K/uL Red Blood Count 4.17 M/uL Hemoglobin 13.1 g/dL Hematocrit 37.5 % Mean Corpuscular Volume 89.9 fL Mean Corpuscular Hemoglobin 31.4 pg Mean Corpuscular Hemoglobin Concent 34.9 g/dl Platelet Count 215 K/uL Mean Platelet Volume 9.9 fL Neutrophils (%) (Auto) 72.6 % Lymphocytes (%) (Auto) 17.1 % Monocytes (%) (Auto) 9.1 % Eosinophils (%) (Auto) 0.6 % Basophils (%) (Auto) 0.3 % Neutrophils # (Auto) 5.63 K/uL Lymphocytes # (Auto) 1.33 K/uL Monocytes # (Auto) 0.71 K/uL Eosinophils # (Auto) 0.05 K/uL Basophils # (Auto) 0.02 K/uL RDW Standard Deviation 44.6 fL RDW Coefficient of Variation 13.6 % Immature Granulocyte % (Auto) 0.3 % Immature Granulocyte # (Auto) 0.02 K/uL Sodium Level 141 mmol/L Potassium Level 4.0 mmol/L Chloride Level 108 mmol/L Carbon Dioxide Level 23 mmol/L Anion Gap 10.0 mmol/L Blood Urea Nitrogen 11 mg/dl Creatinine 0.88 mg/dl Est Creatinine Clear Calc Drug Dose 63.9 ml/min Estimated GFR () 94.0 Estimated GFR (Non- 81.1 BUN/Creatinine Ratio 12.1 Random Glucose 94 mg/dl Calcium Level 8.3 mg/dl Magnesium Level 2.0 mg/dl Triglycerides Level 84 mg/dl Cholesterol Level 113 mg/dl HDL Cholesterol 30 mg/dl LDL Cholesterol, Calculated 66 mg/dl VLDL Cholesterol, Calculated 17 mg/dl Cholesterol/HDL Ratio 3.8 (Jen Amor, PA-C) Diagnostic Results Preliminary cath Report Prelim report: Right dominant circulation, mild CAD of LAD and RCA. Total proximal left circumflex occlusion. R - L collaterals. PTCA and ELEAZAR to left Cx . 2.25 X 18 mm Med[employer]onic Resolute ELEAZAR. Proximal and mid portion of stent post dilated with 2.75 X 8 mm non compliant balloon. Residual stenosis 0-10%. CHRISTAL 3 flow in L CX and all branches. No complications. (Jen Amor, PA-C) Assessment and Plan 81-year-old male presents emergency department with anginal symptoms. Initial EKG with ST depression in inferior and lateral leads with an elevated troponin at 6. Initially hypertensive in the emergency department-now improved NSTEMI-occlusion In prox L circumflex s/p ELEAZAR placement 03/10/2016. Was apparently c/o CP later in the day after I evaluated pt -Continue to monitor in ICU overnight d/t anginal symptoms -Course of Integrilin completed -Med management: B chidi, herminio, statin, plavix HTN-BP initially high-improved now -was on nitro gtt-d/c'ed -management as noted above Upper respiratory tract infection-chest x-ray clear. Afebrile. Likely viral. -treat sx prn -check FLU-neg DVT prophylaxis -Heparin drip -TEDS, SCDs CODE STATUS -LEVEL I FULL CODE (Jen Amor, PA-C) I agree with PA assessment and plan and have personally seen and examined myself, agree with ROS and PE findings Pt chest pain free Resting comfortably in bed S/P cardiac cath with ELEAZAR placed Appreciate cardiology recs Monitor for chest pain VSS Likely DC in 24 hrs (Darnell Jamison, D.O.)
--- NOTE | 2016-03-11 14:47 | Critical Care Progress Note ---
Critical Care Progress Note Date of Service Mar 11, 2016. Attending Dr. Fischer Objective as above. Assessment & Plan called to the bed side, the pt is having chest pain, no NV and no sob, the pt is worse with twisting the upper torso, no diaphoresis, does not appear to be in distress. exam revealed, clear lung cruz, left sided chest wall hematoma, ( old), tender to touch, skin is intact. ). S1S2 RRR, no edema. no neuro deficit. the EKG did not reveal st- st changes from previous EKG done few hours ago. repeat trop was 51 down from before. NTG was given SL and helped the pain. MINI- ECho at the bed side did not show pericardial effusion, good contractility. dilated RV. A/P: atypical chest pain, etiology UK, less likely cardiac, mostly left chest wall hematoma, less likely pericardial, no pericardial effusion. will continue to monitor. now the pt is asymptomatic and chest pain free. discussed with Dr. Hoyos. and with the [facility] Aguilar. appreciate both help. Data Medications: Current Inpatient Medications Medications (Trade) Dose Ordered Sig/Carol Route Start Time Stop Time Status Last Admin Dose Admin Pantoprazole Sodium (Protonix Tab) 40 mg DAILY PO 03/11/16 09:00 04/10/16 08:59 03/11/16 09:30 40 MG Morphine Sulfate 2 mg 2 mg Q2H PRN IV 03/10/16 10:00 03/24/16 09:59 Sodium Chloride (Nss 1000ml) 1,000 ml @ 75 mls/hr [id number] IV 03/10/16 13:45 04/09/16 13:44 03/11/16 04:00 75 MLS/HR Atropine Sulfate (Atropine Sulfate 0.1MG/Ml Inj) 0.5 mg ONE PRN IV 03/10/16 13:45 04/09/16 13:44 Ondansetron HCl (Zofran Inj) 4 mg Q6H PRN IV 03/10/16 13:45 04/09/16 13:44 Aspirin (Ecotrin Tab) 81 mg QAM PO 03/11/16 09:00 04/10/16 08:59 03/11/16 08:53 81 MG Clopidogrel Bisulfate (plAVix TAB) 75 mg QAM PO 03/11/16 09:00 2/24/17 08:59 03/11/16 08:53 75 MG Atorvastatin Calcium (Lipitor Tab) 80 mg QAM PO 03/11/16 09:00 04/10/16 08:59 03/11/16 09:29 80 MG Metoprolol Tartrate (Lopressor Tab) 25 mg Q12 PO 03/10/16 21:00 04/09/16 20:59 03/11/16 08:53 25 MG Lisinopril (Zestril Tab) 2.5 mg QAM PO 03/11/16 09:00 04/10/16 08:59 03/11/16 09:41 2.5 MG Acetaminophen (Tylenol Tab) 650 mg Q4H PRN PO 03/10/16 13:45 04/09/16 13:44 Al Hydrox/Mg Hydrox/Simethicone (Maalox Max Susp) 15 ml Q4H PRN PO 03/10/16 13:45 04/09/16 13:44 Magnesium Hydroxide (Milk Of Magnesia Susp) 30 ml Q12H PRN PO 03/10/16 13:45 04/09/16 13:44 Nitroglycerin (Nitrostat Tab) 0.4 mg PRN PRN SL 03/11/16 12:00 04/10/16 11:59 03/11/16 12:13 0.4 MG I & O: 24-Hour Column 03/11/16 08:00 Intake Total 3479 ml Output Total 1850 ml Balance 1629 ml Vital Signs: Date Time Temp Pulse Resp B/P Pulse Ox O2 Delivery O2 Flow Rate FiO2 03/11/16 14:00 67 18 100/67 95 Room Air 03/11/16 13:44 68 16 94 Room Air 03/11/16 13:44 95 03/11/16 12:00 68 20 115/63 95 Room Air 03/11/16 12:00 91 Room Air 03/11/16 11:15 64 18 102/56 94 Room Air 03/11/16 10:00 72 18 116/69 97 Room Air 03/11/16 08:00 36.8 74 18 111/60 99 Room Air 03/11/16 08:00 Room Air 03/11/16 08:00 96 Room Air 03/11/16 06:00 36.8 62 16 95/56 94 Room Air 03/11/16 04:00 36.5 59 16 101/54 95 Room Air 03/11/16 04:00 95 Room Air 03/11/16 02:00 36.6 62 14 100/61 94 Room Air 03/11/16 00:00 36.6 59 16 102/54 93 Room Air 03/11/16 00:00 93 Room Air 03/10/16 22:00 60 16 110/63 96 Room Air 03/10/16 21:00 68 16 107/69 94 Room Air 03/10/16 20:00 36.4 66 16 107/65 96 Room Air 03/10/16 20:00 96 Room Air 03/10/16 19:00 67 18 102/57 96 Room Air 03/10/16 18:29 36.2 65 18 102/61 94 Room Air 03/10/16 18:00 65 18 102/61 94 Room Air 03/10/16 17:29 61 18 102/58 94 Room Air 03/10/16 17:00 71 18 98/47 95 Room Air 03/10/16 16:29 81 96 03/10/16 16:29 68 123/81 95 Room Air 03/10/16 16:13 66 109/61 97 03/10/16 16:00 95 Room Air 03/10/16 16:00 66 95 03/10/16 16:00 66 95 03/10/16 16:00 75 20 123/81 99 Room Air 03/10/16 15:58 64 106/61 94 03/10/16 15:58 64 106/61 94 03/10/16 15:45 60 93 03/10/16 15:45 60 93 03/10/16 15:44 66 100/56 95 03/10/16 15:44 66 100/56 95 03/10/16 15:30 64 98 03/10/16 15:30 64 98 03/10/16 15:28 62 111/64 97 03/10/16 15:28 62 111/64 97 03/10/16 15:15 75 98 03/10/16 15:15 75 98 03/10/16 15:14 75 95/79 96 03/10/16 15:14 75 95/79 96 03/10/16 15:00 69 99 03/10/16 15:00 69 99 03/10/16 14:58 67 118/68 96 03/10/16 14:58 67 118/68 96 03/10/16 14:45 67 97 03/10/16 14:45 67 97 03/10/16 14:44 67 120/72 97 03/10/16 14:44 67 120/72 97 Laboratory Results: Last 24 Hours Test 03/10/16 18:08 03/10/16 19:45 03/10/16 20:56 03/10/16 21:31 Total Creatine Kinase 4197 U/L 3391 U/L Creatine Kinase MB 680.5 ng/ml 488.8 ng/ml Creatine Kinase MB Ratio 16.2 14.4 Troponin I > 200.000 ng/ml 156.000 ng/ml Urine Color YELLOW Urine Appearance CLEAR Urine pH 7.5 Urine Specific [place] > 1.045 Urine Protein NEG Urine Glucose (UA) NEG Urine Ketones NEG Urine Occult Blood NEG Urine Nitrite NEG Urine Bilirubin NEG Urine Urobilinogen NEG Urine Leukocyte Esterase NEG Influenza Type A (RT-PCR) Neg for Influ A Influenza Type B (RT-PCR) Neg for Influ B Bedside Glucose 100 mg/dl Test 03/11/16 01:49 03/11/16 05:23 03/11/16 12:08 Total Creatine Kinase 2564 U/L 1994 U/L Creatine Kinase MB 322.7 ng/ml 210.1 ng/ml Creatine Kinase MB Ratio 12.6 10.5 Troponin I 107.000 ng/ml 83.100 ng/ml 51.900 ng/ml White Blood Count 7.76 K/uL Red Blood Count 4.17 M/uL Hemoglobin 13.1 g/dL Hematocrit 37.5 % Mean Corpuscular Volume 89.9 fL Mean Corpuscular Hemoglobin 31.4 pg Mean Corpuscular Hemoglobin Concent 34.9 g/dl Platelet Count 215 K/uL Mean Platelet Volume 9.9 fL Neutrophils (%) (Auto) 72.6 % Lymphocytes (%) (Auto) 17.1 % Monocytes (%) (Auto) 9.1 % Eosinophils (%) (Auto) 0.6 % Basophils (%) (Auto) 0.3 % Neutrophils # (Auto) 5.63 K/uL Lymphocytes # (Auto) 1.33 K/uL Monocytes # (Auto) 0.71 K/uL Eosinophils # (Auto) 0.05 K/uL Basophils # (Auto) 0.02 K/uL RDW Standard Deviation 44.6 fL RDW Coefficient of Variation 13.6 % Immature Granulocyte % (Auto) 0.3 % Immature Granulocyte # (Auto) 0.02 K/uL Sodium Level 141 mmol/L Potassium Level 4.0 mmol/L Chloride Level 108 mmol/L Carbon Dioxide Level 23 mmol/L Anion Gap 10.0 mmol/L Blood Urea Nitrogen 11 mg/dl Creatinine 0.88 mg/dl Est Creatinine Clear Calc Drug Dose 63.9 ml/min Estimated GFR () 94.0 Estimated GFR (Non- 81.1 BUN/Creatinine Ratio 12.1 Random Glucose 94 mg/dl Calcium Level 8.3 mg/dl Magnesium Level 2.0 mg/dl Triglycerides Level 84 mg/dl Cholesterol Level 113 mg/dl HDL Cholesterol 30 mg/dl LDL Cholesterol, Calculated 66 mg/dl VLDL Cholesterol, Calculated 17 mg/dl Cholesterol/HDL Ratio 3.8
--- NOTE | 2016-03-11 19:26 | CARDIOLOGY PROGRESS NOTE ---
DATE: 03/11/2016 HISTORY OF PRESENT ILLNESS: The patient was seen by me today in his intensive care unit room. Prior to lunch, he had an episode of a sharp left-sided chest pain which lasted several minutes. He states to me that it was different than the pain with which he presented to the Emergency Department last evening. By the time of my exam, the patient's discomfort had resolved. He states he did have point tenderness on the left side of his chest on exam by Dr. Fischer. He denies any of the anginal type chest pains which prompted his Emergency Department visit last night. He denies any dyspnea. No orthopnea or PND. No palpitations, lightheadedness, syncope, pain at the right radial catheterization site, right hand pain, or leg pain. He does complain of decreased appetite. He had nausea yesterday evening. No nausea today. No symptoms of bleeding. No cerebrovascular complaints. No fevers or chills. No skin rash complaints. MEDICATIONS: Today are pantoprazole 40 mg daily, aspirin 81 mg daily, clopidogrel 75 mg daily, atorvastatin 80 mg daily, lisinopril 2.5 mg daily, metoprolol tartrate 25 mg q. 12 hours. He was on intravenous Integrilin overnight. This was discontinued this morning. ALLERGIES: No known drug allergies. PHYSICAL EXAMINATION: GENERAL: Monitor history since admission to intensive care unit reviewed by me. Sinus rhythm with occasional premature ventricular beat. No evidence of atrioventricular block or significant ventricular arrhythmias. VITAL SIGNS: Late this morning with pulse 64, blood pressure 102/56, pulse oximetry room air 94%. NECK: No jugular venous distention. LUNGS: Crackles at the bases. These improved with deep breathing and coughing. CHEST WALL: Tenderness to palpation in the left chest wall. He also has an ecchymoses in his left lateral chest wall. He also has tenderness in the lower retrosternal region and xiphoid process region. ABDOMEN: Soft. Nontender. No palpable masses or organomegaly. No bruits. EXTREMITIES: Right radial catheterization site without bleeding or hematoma. No evidence of arterial insufficiency in the right hand. No evidence of leg edema. No leg tenderness. NEUROLOGIC: Alert and oriented x3. Motor grossly intact. PSYCHIATRIC: Affect is normal. DATA: Echocardiogram performed yesterday afternoon revealed low normal overall LV systolic function, LV ejection fraction 50%-55%, basal to mid posterior hypokinesis. Basal inferior hypokinesis. Lateral hypokinesis. Mild right ventricular systolic dysfunction. Mild right ventricular dilatation. Mild left atrial dilatation. Trace mitral regurgitation. Trace tricuspid regurgitation. Mild aortic valve sclerosis. Electrocardiogram performed this morning reveals normal sinus rhythm, early R-wave transition V1-V2. Cannot exclude posterior MT. Normal ST segments. T-wave inversions 1 and aVL. LABORATORIES: Today with WBC 7.76, hemoglobin 13.1, hematocrit 37.5, platelet count 215. Metabolic profile - sodium 141, potassium 4.0, chloride 108, carbon dioxide 23, BUN 11, creatinine 0.88, random glucose 94. Peak CK total was 4303 at 2:38 p.m. yesterday. The peak CK-MB was also at that time. It was 729.5. This morning, CK-MB 210.1 with a CK total 1994. Peak troponin I greater than 200. This was at 2:38 p.m. yesterday afternoon. Today, troponin I 51.900. Lipid profile with triglycerides 84, total cholesterol 113, direct LDL 88, HDL 30. ASSESSMENT: 1. 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 Right to left collateral flow to the left circumflex. Successful intervention to the proximal left circumflex stenosis with deployment of 2.25 x 18 mm drug-eluting stent. Proximal and mid segments of stent post-dilated with a 2.75 mm noncompliant balloon. No significant residual stenosis at the stent site. 2. No post-infarct angina. This is since the percutaneous coronary intervention. No significant arrhythmias. No congestive heart failure. No vascular complications at right radial catheterization site. 3. Dyslipidemia. Direct LDL is than 103 and he has low HDL. 4. Stable renal function post percutaneous coronary intervention. His creatinine has actually improved since admission with intravenous fluid hydration. Platelet count today 215. On admission was 274. This is not unexpected in light of his antiplatelet medications which had been administered. Hemoglobin today 13.1. Admission hemoglobin 14.9. 5. No cerebrovascular or peripheral vascular complaints. 6. Musculoskeletal chest pain. The patient had sustained trauma to his chest wall last week when he had climbed under his sikhism organ. He then needed to be pulled out from under the organ. PLAN: 1. Discontinue IV fluids. 2. Increase activity. Ambulate in-chase. 3. Continue current cardiac medications. Continue high dose atorvastatin. 4. Continue dual antiplatelet therapy. MTDD
[2016-03-12] VITALS (9 sets, daily range): BP systolic 93–126; BP diastolic 58–87; PULSE 60–69; TEMP 36.5; O2SAT 92–99
[2016-03-12] MEDS: SODIUM CHLORIDE 0.9% 1000ML 1,000 ML IV SCH (05:45)
[2016-03-12 05:48] LABS: BASO % 0.3 %; BASO ABS # 0.02 K/uL (0-0.2); COMPLETE YES; EOS % 1.5 %; IG% 0.1 %; LYMPH % 17.2 %; LYMPH ABS # 1.36 K/uL (1.2-3.4); MEAN CORPUSCULAR HEMOGLOBIN 31.8 pg (25-34); MEAN CORPUSCULAR HGB CONC 35.3 g/dl (32-36); MONO % 9.7 %; NEUT % 71.2 %; PLATELET COUNT 208 K/uL (130-400); RED BLOOD COUNT 4.22 M/uL (4.7-6.1); WHITE BLOOD COUNT 7.92 K/uL (4.8-10.8)
[2016-03-12 06:27] LABS: CALCIUM 8.3 mg/dl (8.5-10.1); CREATININE 0.93 mg/dl (0.60-1.40); POTASSIUM 3.8 mmol/L (3.5-5.1)
[2016-03-12] MEDS: ATORVASTATIN 40 MG TAB PO SCH (09:01)
[2016-03-12] MEDS: METOPROLOL TARTRATE 25 MG TAB PO SCH (09:01)
[2016-03-12] MEDS: LISINOPRIL 5 MG TAB PO SCH (09:01)
[2016-03-12] MEDS: ASPIRIN 81 MG ECTAB PO SCH (09:01)
[2016-03-12] MEDS: CLOPIDOGREL BISULFATE 75 MG TAB PO SCH (09:01)
[2016-03-12] MEDS: PANTOprazole SOD 40 MG TAB PO SCH (09:01)
--- NOTE | 2016-03-12 09:53 | Critical Care Progress Note ---
Critical Care Progress Note Date of Service Mar 12, 2016. Attending Dr. Fischer Subjective no events overnight, ambulated with the nursing staff, asymptomatic, minimal chest wall pain from previous chest wall hematoma. Objective as above. Assessment & Plan NSTEMI, stent to the RCA,. stable on cardiac regimen, likely home today, diacussed with Dr. Hoyos, discussed with the staff on rounds. Data Medications: Current Inpatient Medications Medications (Trade) Dose Ordered Sig/Carol Route Start Time Stop Time Status Last Admin Dose Admin Pantoprazole Sodium (Protonix Tab) 40 mg DAILY PO 03/11/16 09:00 04/10/16 08:59 03/12/16 09:01 40 MG Morphine Sulfate 2 mg 2 mg Q2H PRN IV 03/10/16 10:00 03/24/16 09:59 Sodium Chloride (Nss 1000ml) 1,000 ml @ 75 mls/hr [id number] IV 03/10/16 13:45 04/09/16 13:44 03/11/16 04:00 75 MLS/HR Atropine Sulfate (Atropine Sulfate 0.1MG/Ml Inj) 0.5 mg ONE PRN IV 03/10/16 13:45 04/09/16 13:44 Ondansetron HCl (Zofran Inj) 4 mg Q6H PRN IV 03/10/16 13:45 04/09/16 13:44 Aspirin (Ecotrin Tab) 81 mg QAM PO 03/11/16 09:00 04/10/16 08:59 03/12/16 09:01 81 MG Clopidogrel Bisulfate (plAVix TAB) 75 mg QAM PO 03/11/16 09:00 04/10/16 08:59 03/12/16 09:01 75 MG Atorvastatin Calcium (Lipitor Tab) 80 mg QAM PO 03/11/16 09:00 04/10/16 08:59 03/12/16 09:01 80 MG Lisinopril (Zestril Tab) 2.5 mg QAM PO 03/11/16 09:00 04/10/16 08:59 03/12/16 09:01 2.5 MG Acetaminophen (Tylenol Tab) 650 mg Q4H PRN PO 03/10/16 13:45 04/09/16 13:44 Al Hydrox/Mg Hydrox/Simethicone (Maalox Max Susp) 15 ml Q4H PRN PO 03/10/16 13:45 04/09/16 13:44 Magnesium Hydroxide (Milk Of Magnesia Susp) 30 ml Q12H PRN PO 03/10/16 13:45 04/09/16 13:44 Nitroglycerin (Nitrostat Tab) 0.4 mg PRN PRN SL 03/11/16 12:00 04/10/16 11:59 03/11/16 12:13 0.4 MG Metoprolol Succinate (Toprol Xl Tab) 50 mg QAM PO 03/13/16 09:00 04/12/16 08:59 I & O: 24-Hour Column 03/12/16 08:00 Intake Total 1521 ml Balance 1521 ml Vital Signs: Date Time Temp Pulse Resp B/P Pulse Ox O2 Delivery O2 Flow Rate FiO2 03/12/16 08:00 69 20 126/66 99 Room Air 03/12/16 08:00 97 Room Air 03/12/16 06:00 64 16 93/59 94 Room Air 03/12/16 04:00 Room Air 03/12/16 04:00 36.5 60 16 112/87 94 Room Air 03/12/16 01:50 68 16 101/58 95 Room Air 03/12/16 01:00 67 14 102/59 94 Room Air 03/12/16 00:00 36.5 68 16 100/59 94 Room Air 03/12/16 00:00 Room Air 03/11/16 22:27 68 18 91/51 95 Room Air 03/11/16 21:14 69 117/65 96 03/11/16 20:00 Room Air 03/11/16 20:00 36.6 67 20 103/61 95 Room Air 03/11/16 18:00 65 20 92/54 94 Room Air 03/11/16 16:00 93 Room Air 03/11/16 16:00 77 18 102/59 95 Room Air 03/11/16 14:00 67 18 100/67 95 Room Air 03/11/16 13:44 68 16 94 Room Air 03/11/16 13:44 95 03/11/16 12:00 68 20 115/63 95 Room Air 03/11/16 12:00 91 Room Air 03/11/16 11:15 64 18 102/56 94 Room Air 03/11/16 10:00 72 18 116/69 97 Room Air Laboratory Results: Last 24 Hours Test 03/11/16 12:08 03/11/16 21:17 03/12/16 05:30 Troponin I 51.900 ng/ml Bedside Glucose 87 mg/dl White Blood Count 7.92 K/uL Red Blood Count 4.22 M/uL Hemoglobin 13.4 g/dL Hematocrit 38.0 % Mean Corpuscular Volume 90.0 fL Mean Corpuscular Hemoglobin 31.8 pg Mean Corpuscular Hemoglobin Concent 35.3 g/dl Platelet Count 208 K/uL Mean Platelet Volume 10.0 fL Neutrophils (%) (Auto) 71.2 % Lymphocytes (%) (Auto) 17.2 % Monocytes (%) (Auto) 9.7 % Eosinophils (%) (Auto) 1.5 % Basophils (%) (Auto) 0.3 % Neutrophils # (Auto) 5.64 K/uL Lymphocytes # (Auto) 1.36 K/uL Monocytes # (Auto) 0.77 K/uL Eosinophils # (Auto) 0.12 K/uL Basophils # (Auto) 0.02 K/uL RDW Standard Deviation 45.5 fL RDW Coefficient of Variation 13.7 % Immature Granulocyte % (Auto) 0.1 % Immature Granulocyte # (Auto) 0.01 K/uL Sodium Level 142 mmol/L Potassium Level 3.8 mmol/L Chloride Level 109 mmol/L Carbon Dioxide Level 25 mmol/L Anion Gap 8.0 mmol/L Blood Urea Nitrogen 15 mg/dl Creatinine 0.93 mg/dl Est Creatinine Clear Calc Drug Dose 60.4 ml/min Estimated GFR () 89.5 Estimated GFR (Non- 77.3 BUN/Creatinine Ratio 16.0 Random Glucose 86 mg/dl Calcium Level 8.3 mg/dl
--- NOTE | 2016-03-12 10:14 | CARDIOLOGY PROGRESS NOTE ---
DATE: 03/12/2016 SUBJECTIVE: The patient was seen this morning by me in his intensive care unit room. He is feeling well. He has been walking in the [place] multiple times since yesterday. Initially when getting out of bed, he has had brief lightheadedness. This quickly resolves. No lightheadedness when walking in the chase. No anginal type chest pain. No further episodes of left-sided chest pain that he experienced yesterday. No orthopnea, PND, dyspnea, palpitations, syncope, or leg edema. His appetite has returned to normal. He still complains of constipation. No nausea. No abdominal pain. No pulmonary complaints. No fevers or chills. No cerebrovascular complaints. No urinary complaints. No pain at his right radial catheterization site. CURRENT MEDICATIONS: Pantoprazole 40 mg daily, metoprolol tartrate 25 mg b.i.d., aspirin 81 mg daily, clopidogrel 75 mg daily, atorvastatin 80 mg daily, lisinopril 2.5 mg daily, and sublingual nitroglycerin 0.4 mg as needed for chest pain. P.r.n. Zofran, Maalox, acetaminophen, and milk of magnesia. Also, p.r.n. morphine. ALLERGIES: No known drug allergies. Monitor history over the past 24 hours reveals sinus rhythm and rare premature ventricular beats. No atrioventricular block. No ventricular tachycardia. PHYSICAL EXAMINATION: VITAL SIGNS: This morning with pulse 69, blood pressure 126/56, and pulse oximetry on room air 97%. NECK: No jugular venous distention. LUNGS: Scant crackles at the bases. These clear completely after coughing. No rales or wheezes thereafter. HEART: Regular rate and rhythm. S1 and S2 normal. No S3 or S4. No murmur or rub. ABDOMEN: Soft. Nontender. No palpable masses or organomegaly. No bruits. EXTREMITIES: Right radial catheterization site without bleeding or hematoma. Nontender. No evidence of arterial insufficiency, right hand. Right radial pulse strongly palpable. No pretibial edema. No calf tenderness. NEUROLOGIC: Alert and oriented x3. Motor grossly intact. PSYCHIATRIC: Affect is normal. DATA: Electrocardiogram today with normal sinus rhythm. Normal axis and intervals. Prominent R-wave in V1. Can't exclude posterior [place]. Otherwise, electrocardiogram is normal. LABORATORY DATA: Today with WBC 7.92, hemoglobin 13.4, hematocrit 38.0, and platelet count 208. Metabolic profile -- sodium 142, potassium 3.8, chloride 109, carbon dioxide 25, BUN 15, creatinine 0.93, and random glucose 86. Troponin I yesterday afternoon was 51.900. Peak troponin I was at 2:38 p.m. on day of admission. This was approximately 4 hours after reperfusing of his left circumflex coronary artery. ASSESSMENT: 1. 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 He had a right to left collateral flow. 2. Successful intervention to the left circumflex occlusion with deployment of a 2.25 x 18 mm drug-eluting stent. The proximal and mid segments of the stent were post-dilated to diameter 2.75 mm. No residual stenosis at the stent site. No coronary, cardiac, or vascular complications post-procedure. 3. No further anginal type chest discomfort since successful PCI. Musculoskeletal chest discomfort yesterday. None further. 4. No evidence of heart failure by signs or symptoms. 5. No arrhythmias. 6. Blood pressure and heart rate well controlled. 7. No vascular complications at right radial catheterization site. PLAN: 1. Change metoprolol to metoprolol succinate ER 50 mg once daily. 2. The patient can be discharged home today. 3. Discharged home on metoprolol succinate ER 50 mg once daily, aspirin 81 mg daily, clopidogrel 75 mg daily, atorvastatin 80 mg daily, lisinopril 2.5 mg daily, and sublingual nitroglycerin 0.4 mg as needed for chest pain. 4. Followup visit with me in 2-4 weeks. 5. The patient was given our office phone number. This is the [facility] number. He was asked to call if he had any problems or questions. He was instructed to take his medications on a daily basis. He was instructed to call 911 immediately if he has any sustained chest discomfort similar to that which was present at the time of admission. He was asked to not perform any strenuous activity or heavy lifting greater than 10 pounds for 72 hours. HOLA
[2016-03-12] MEDS ORDERED: LSN5 PO (10:56)
[2016-03-12] MEDS ORDERED: NTRSLP4 SL (10:56)
[2016-03-12] MEDS ORDERED: PLV75 PO (10:56)
[2016-03-12] MEDS ORDERED: ASPEC81 PO (10:56)
[2016-03-12] MEDS ORDERED: LPT40 PO (10:56)
[2016-03-12] MEDS ORDERED: TPRSR50 PO (10:56)
--- NOTE | 2016-03-12 11:14 | Discharge Instructions ---
Discharge Instructions Admission Reason for Admission: Nstemi Discharge Discharge Diagnosis / Problem: NSTEMI Discharge Goals Goal(s): Improve function, Diagnostic testing, Therapeutic intervention Activity Recommendations Activity Limitations: as noted below Mild exercise such as walking is okay-please stop immediately for any chest pain , chest pressure, shortness of breath, dizziness, heart palpitations or sweating No strenuous activity until seen by cardiology in follow up . Instructions / Follow-Up Instructions / Follow-Up You have been treated in the hospital for an NSTEMI (heart attack) A cardiac catheterization was performed and showed a blockage in the left circumflex artery of your heart. A stent was placed. You had been prescribed the following new medications -Metoprolol ER 50 mg once daily -Lisinopril 2.5 mg daily -Aspirin 81 mg daily -Plavix 75 mg daily -Atorvastatin 80 mg daily -Nitroglycerin sublingual tabs 0.4 mg take 1 every 5 minutes as needed for chest pain until chest pain resolves It is very important for you to follow up with your primary care physician within one week Please, follow up at the [facility] Office on WednesdayApril 01 at 10:00 am with Brenden Florence PA-C. This office is located in [address] of the [facility] Building near the [facility]. The office phone number is [phone]. Return to the emergency department if you have any of the following symptoms: -Fever of 102F or greater -Persistent vomiting - Persistent diarrhea -Lethargy -Chest pain -Shortness of breath Current Hospital Diet Patient's current hospital diet: AHA Diet (Heart Healthy) Discharge Diet Recommended Diet: AHA Diet (Heart Healthy) Procedures Procedures Performed: Cardiac catheterization-stent placement Pending Studies Studies pending at discharge: no Laboratory Results Hemoglobin A1c Test 03/10/16 07:59 Range/Units Estimated Average Glucose 117 mg/dl Hemoglobin A1c 5.7 H 4.5-5.6 % Lipid Panel Test 03/11/16 05:23 Range/Units Triglycerides Level 84 0-150 mg/dl Cholesterol Level 113 0-200 mg/dl HDL Cholesterol 30 mg/dl Cholesterol/HDL Ratio 3.8 LDL Cholesterol, Calculated 66 mg/dl Medical Emergencies . Who to Call and When: Medical Emergencies: If at any time you feel your situation is an emergency, please call 911 immediately. . Non-Emergent Contact Non-Emergency issues call your: Primary Care Provider, Lane Marker Installer . . "Provider Documentation" section prepared by Jen Amor. VTE Core Measure Inpt VTE Proph given/why not?: Other Anticoagulation, T.E.D. Stockings, SCD's
--- NOTE | 2016-03-12 11:47 | Discharge Summary ---
Discharge Summary Admission Date: Mar 10, 2016 at 10:11 Discharge Date: Mar 12, 2016 Discharge Disposition: Home Principal Diagnosis: NSTEMI Procedures: cardiac catheterization-03/10-proximal occlusion of the L circumflex with collateral flow s/p 1 ELEAZAR placement Consultations: cardiology (Jen Amor PA-C) Medication Reconciliation New Medications: Aspirin (Aspirin EC Low Dose) 81 Mg Ectab 81 MG PO QAM for 30 Days Atorvastatin (Atorvastatin Calcium) 40 Mg Tab 80 MG PO QAM for 30 Days, #60 TAB Clopidogrel Bisulfate (Clopidogrel) 75 Mg Tab 75 MG PO QAM for 30 Days, #30 TAB Lisinopril (Lisinopril) 5 Mg Tab 2.5 MG PO QAM for 30 Days, #15 TAB Metoprolol Succinate (Metoprolol Succinate ER) 50 Mg Tabcr 50 MG PO QAM for 30 Days Nitroglycerin (Nitrostat) 0.4 Mg/1 Tab Subl 0.4 MG SL PRN PRN for Chest Pain, #60 Referrals At Discharge Follow up Referrals: German Teacher Referral - Within a Month with Moses Gutierrez MD Discharge Exam pt feels good today. No CP, pressure, SOB, palpitations, dizziness, sweating overnight Review of Systems: Respiratory: No cough, No shortness of breath Cardiovascular: No chest pain Abdomen: No nausea Endocrine: No fatigue Physical Exam: General Appearance: no apparent distress Neck: no JVD Respiratory/Chest: + pertinent finding (few crackles at the bases bilaterally) Cardiovascular: regular rate, rhythm Abdomen / GI: normal bowel sounds, non tender, soft Extremities: no calf tenderness, no pedal edema Neurologic/Psychiatric: no motor/sensory deficits, oriented x 3 Skin: warm/dry (Jen Amor PA-C) Hospital Course 81-year-old male presents emergency department with anginal symptoms. Initial EKG with ST depression in inferior and lateral leads with an elevated troponin at 6. Initially hypertensive in the emergency department NSTEMI-occlusion In prox L circumflex s/p ELEAZAR placement 03/10/2016. -Admitted to ICU on nitro gtt -cardiology consult -started on heparin gtt, Integrilin -cardiac cath done 03/10 with stent placement -had an episode of CP 03/11-likely MS in nature not cardiac -Med management: B chidi, herminio, statin, plavix, ASA HTN-BP initially high-improved now -was on nitro gtt-d/c'ed -management as noted above Upper respiratory tract infection-chest x-ray clear. Afebrile. Likely viral. -treat sx prn -check FLU-neg DVT prophylaxis -Heparin drip -TEDS, SCDs CODE STATUS -LEVEL I FULL CODE DISPO -d/c home with cardiology f/u Total Time Spent: Greater than 30 minutes This includes examination of the patient, discharge planning, medication reconciliation, and communication with other providers. (Jen Amor PA-C) I agree with PA assessment and plan and have seen and examined pt myself Hemodynamically stable No further chest pain Cont regimen s/p cath and stent placement F/U with cardiology (Darnell Jamison, D.O.) Discharge Instructions Please refer to the electronic Patient Visit Report (Discharge Instructions) for additional information. (Jen Amor PA-C) Follow-Up PCP 1 week Christopherp Naman TRIANA cards in 2 weeks (Jne Amor PA-C) Additional Copies To Valeriy Hoyos M.D.
[2016-03-12] MEDS ORDERED: FUROSEMIDE INJ 20 MG in SYRINGE 0 ML IV ONE (12:00)
[2016-03-13] MEDS ORDERED: METOPROLOL SUCC 50MG EXT REL TAB PO SCH (09:00)
== END 2016-03-12 13:12 | disposition home or self-care (01) | DRG 247 ==
LOC: ENRESERVTM → ENRESERVDT → C.EDB 07:44 → C.MSICU 10:11
PROVIDERS: ADMIT Hospitalist; ATTEND Hospitalist
PROC: 027034Z Dilation of Coronary Artery, One Artery with Drug-eluting Intraluminal Device, Percutaneous Approach (ICD-10-PCS; principal; 2016-03-10 11:17)
PROC: 4A023N7 Measurement of Cardiac Sampling and Pressure, Left Heart, Percutaneous Approach (ICD-10-PCS; principal; 2016-03-10 11:17)
PROC: B2111ZZ Fluoroscopy of Multiple Coronary Arteries using Low Osmolar Contrast (ICD-10-PCS; principal; 2016-03-10 11:17)
PROC: 3E033PZ Introduction of Platelet Inhibitor into Peripheral Vein, Percutaneous Approach (ICD-10-PCS; principal; 2016-03-10 11:17)
DX: I21.4 Non-ST elevation (NSTEMI) myocardial infarction (principal); I10 Essential (primary) hypertension; J06.9 Acute upper respiratory infection, unspecified; I25.10 Atherosclerotic heart disease of native coronary artery without angina pectoris; E78.5 Hyperlipidemia, unspecified

== ENCOUNTER 2016-03-14 06:57 | Observation (INO) | payer BC, OTHER ==
[~2016-03-14] VITALS: Ht 162.6 cm; Wt 77.3 kg
[2016-03-14] VITALS (8 sets, daily range): BP systolic 102–147; BP diastolic 55–86; PULSE 74–96; TEMP 36.6–37; O2SAT 94–97; Ht 162.6 cm; Wt 77.3 kg
[~2016-03-14 06:57] MED LIST: ASPEC81 PO; LPT40 PO; LSN5 PO; NTRSLP4 SL; PLV75 PO; TPRSR50 PO
[2016-03-14] MEDS ORDERED: SODIUM CHLORIDE 0.9% 500ML 500 ML IV STA (07:07)
[2016-03-14] MEDS ORDERED: ASPIRIN 81 MG CHEW PO STA (07:07)
[2016-03-14] MEDS ORDERED: KETOROLAC TROMETHAMINE 30 MG/ML VIAL IV STA (07:09)
--- NOTE | 2016-03-14 07:26 | DIAGNOSTIC IMAGING REPORT ---
CHEST ONE VIEW PORTABLE CLINICAL HISTORY: Atypical chest pain COMPARISON STUDY: 03/10/2016 FINDINGS: The cardiac and mediastinal contours remain stable. There is persistent right hilar fullness. There is no lobar consolidation. There is no overt failure. There are no pleural effusions.[ IMPRESSION: Persistent right hilar fullness. Mild central vascular prominence without evidence of overt failure. No evidence of focal pulmonary consolidation. Electronically signed by: Narayan Flores M.D. 03/14/2016 7:25 AM Dictated Date/Time: 03/14/2016 7:24 AM
[2016-03-14 07:42] LABS: HEMATOCRIT 39.8 % (42-52); MEAN CELL VOLUME 90.5 fL (80-100); MEAN CORPUSCULAR HEMOGLOBIN 31.6 pg (25-34); MEAN CORPUSCULAR HGB CONC 34.9 g/dl (32-36); PLATELET COUNT 250 K/uL (130-400); WHITE BLOOD COUNT 11.05 K/uL (4.8-10.8)
[2016-03-14 08:07] LABS: BASO % 0.3 %; BASO ABS # 0.03 K/uL (0-0.2); COMPLETE YES; EOS % 2.2 %; IG% 0.2 %; LYMPH % 11.5 %; LYMPH ABS # 1.27 K/uL (1.2-3.4); MONO % 10.1 %; NEUT % 75.7 %
[2016-03-14] MEDS ORDERED: OPTIRAY 320 IV PRN (08:15)
[2016-03-14 08:24] LABS: BUN/CREATININE RATIO 12.3 (10-20); CALCIUM 8.7 mg/dl (8.5-10.1); CKMB/CK RATIO 1.7 (0-3.0); CREATININE 1.1 mg/dl (0.60-1.40); POTASSIUM 4.4 mmol/L (3.5-5.1)
--- NOTE | 2016-03-14 08:47 | EMERGENCY ROOM VISIT NOTE ---
History Report prepared by Fadiibbjorn: Mandeep Meade Under the Supervision of: Dr. García Flanagan D.O. First contact with patient: 07:00 Chief Complaint: CHEST PAIN Stated Complaint: CHEST PAIN/HEART ATTACK ON WEDNESDAY History of Present Illness The patient is an 81 year old male who presents to the Emergency Room with complaints of worsening chest pain since 0300 this morning. The pain is sharp and is localized to the center of his chest. The pain is worsened with breathing. The pain does not radiate. The patient also complains of a headache. He was given Nitroglycerin REPAIR MANAGER. The pain the patient is experiencing is not the same pain he experienced when he had a heart attack five days ago. He had a coronary stent placed. The patient was discharged two days ago. The patient is now on Plavix. The patient denies any history of blood clots. Patient denies change in vision, fevers, shortness of breath, nausea, vomiting, diarrhea, pain with urination, and melena. Source of History: patient Onset: 299 Position: chest Quality: sharp Timing: worsening Modifying Factors (Worsening): breathing Associated Symptoms: + headache, No SOB, No chest pain, No diarrhea, No fevers, No melena, No nausea, No urinary symptoms, No vomiting Review of Systems See HPI for pertinent positives & negatives. A total of 10 systems reviewed and were otherwise negative. Past Medical & Surgical Medical Problems: (1) chest pain (2) NSTEMI (non-ST elevated myocardial infarction) Family History Patient reports no known family medical history. Social History Smoking Status: Never Smoker Drug Use: none Marital Status: Occupation Status: employed Current/Historical Medications Scheduled Aspirin (Aspirin EC Low Dose), 81 MG PO QAM Atorvastatin (Atorvastatin Calcium), 80 MG PO QAM Clopidogrel Bisulfate (Clopidogrel), 75 MG PO QAM Lisinopril (Lisinopril), 2.5 MG PO QAM Metoprolol Succinate (Metoprolol Succinate ER), 50 MG PO QAM Scheduled PRN Nitroglycerin (Nitrostat), 0.4 MG SL PRN PRN for Chest Pain Allergies Coded Allergies: No Known Allergies (Verified , 03/10/16) Physical Exam Vital Signs Date Time Temp Pulse Resp B/P Pulse Ox O2 Delivery O2 Flow Rate FiO2 03/14/16 11:12 75 18 122/87 97 Room Air 03/14/16 10:31 73 03/14/16 10:30 75 16 135/71 97 Room Air 03/14/16 09:44 76 16 159/93 95 Room Air 03/14/16 08:53 95 Room Air 03/14/16 08:31 73 16 118/71 03/14/16 08:03 72 16 111/73 03/14/16 07:10 76 03/14/16 07:03 37.0 81 22 136/75 95 Room Air 03/14/16 07:03 95 Room Air Physical Exam GENERAL: Sitting up in bed, disheveled, no acute distress, nontoxic. EYE EXAM: normal conjunctiva. OROPHARYNX: no exudate, no erythema, lips, buccal mucosa, and tongue normal and mucous membranes are moist NECK: supple, no nuchal rigidity, no adenopathy, non-tender LUNGS: Clear to auscultation. Normal chest wall mechanics HEART: no murmurs, S1 normal and S2 normal ABDOMEN: abdomen soft, non-tender, normo-active bowel sounds, no masses, no rebound or guarding. BACK: Back is symmetrical on inspection and there is no deformity, no midline tenderness, no CVA tenderness. SKIN: no rashes and no bruising UPPER EXTREMITIES: upper extremities are grossly normal. LOWER EXTREMITIES: No pitting edema. NEURO EXAM: Normal sensorium, cranial nerves II-XII grossly intact, normal speech, no gross weakness of arms, no gross weakness of legs. Gross sensation intact. Medical Decision & Procedures ER Provider Diagnostic Interpretation: Xray results per the radiologist and my interpretation. Other results have been interpreted by the radiologist and reviewed by me. CHEST ONE VIEW PORTABLE CLINICAL HISTORY: Atypical chest pain COMPARISON STUDY: 03/10/2016 FINDINGS: The cardiac and mediastinal contours remain stable. There is persistent right hilar fullness. There is no lobar consolidation. There is no overt failure. There are no pleural effusions.[ IMPRESSION: Persistent right hilar fullness. Mild central vascular prominence without evidence of overt failure. No evidence of focal pulmonary consolidation. Electronically signed by: Narayan Flores M.D. 03/14/2016 7:25 AM Dictated Date/Time: 03/14/2016 7:[address] ANGIOGRAM OF THE CHEST CLINICAL HISTORY: Atypical chest pain. SUSPECTED PULMONARY EMBOLISM. COMPARISON STUDY: Chest x-ray dated 03/06/2016 TECHNIQUE: Following the IV administration of 90 mL of Optiray-320, CT angiogram of the thorax was performed from the thoracic inlet to the lung bases utilizing the pulmonary embolus protocol. Images are reviewed in the axial, sagittal, and coronal planes. IV contrast was administered without complication. MIP imaging was performed. CT DOSE: 358.52 mGy.cm FINDINGS: There is a upper pole left renal lobulation versus mass. There is a partially visualized hypodense nodule within the upper pole of the right kidney. Mediastinal lymph nodes are the upper limits of normal in size. There are borderline enlarged right hilar lymph nodes. There is no evidence for axillary lymphadenopathy. There was no evidence of thoracic aortic dilatation. There were no pulmonary artery filling defects to indicate acute pulmonary embolism. There are trace bilateral pleural effusions. There are dependent atelectatic changes. There is mild subpleural septal thickening. This may indicate an element of mild interstitial edema. The heart is enlarged. There is a 4 mm perifissural right middle lobe pulmonary nodule. IMPRESSION: 1. No CT evidence of acute pulmonary embolism 2. No evidence of focal pulmonary consolidation 3. Cardiomegaly, trace pleural fluid, and minimal interstitial edema. Electronically signed by: Narayan Flores M.D. 03/14/2016 10:03 AM Dictated Date/Time: 03/14/2016 9:56 AM Laboratory Results 03/14/16 07:25 Red Blood Count 4.40, Mean Corpuscular Volume 90.5, Mean Corpuscular Hemoglobin 31.6, Mean Corpuscular Hemoglobin Concent 34.9, Mean Platelet Volume 10.0, Neutrophils (%) (Auto) 75.7, Lymphocytes (%) (Auto) 11.5, Monocytes (%) (Auto) 10.1, Eosinophils (%) (Auto) 2.2, Basophils (%) (Auto) 0.3, Neutrophils # (Auto ) 8.37, Lymphocytes # (Auto) 1.27, Monocytes # (Auto) 1.12, Eosinophils # (Auto ) 0.24, Basophils # (Auto) 0.03 03/14/16 07:25 Test 03/14/16 07:25 03/14/16 08:07 White Blood Count 11.05 K/uL (4.8-10.8) Red Blood Count 4.40 M/uL (4.7-6.1) Hemoglobin 13.9 g/dL (14.0-18.0) Hematocrit 39.8 % (42-52) Mean Corpuscular Volume 90.5 fL (80-100) Mean Corpuscular Hemoglobin 31.6 pg (25-34) Mean Corpuscular Hemoglobin Concent 34.9 g/dl (32-36) Platelet Count 250 K/uL (130-400) Mean Platelet Volume 10.0 fL (7.4-10.4) Neutrophils (%) (Auto) 75.7 % Lymphocytes (%) (Auto) 11.5 % Monocytes (%) (Auto) 10.1 % Eosinophils (%) (Auto) 2.2 % Basophils (%) (Auto) 0.3 % Neutrophils # (Auto) 8.37 K/uL (1.4-6.5) Lymphocytes # (Auto) 1.27 K/uL (1.2-3.4) Monocytes # (Auto) 1.12 K/uL (0.11-0.59) Eosinophils # (Auto) 0.24 K/uL (0-0.5) Basophils # (Auto) 0.03 K/uL (0-0.2) RDW Standard Deviation 44.7 fL (36.4-46.3) RDW Coefficient of Variation 13.6 % (11.5-14.5) Immature Granulocyte % (Auto) 0.2 % Immature Granulocyte # (Auto) 0.02 K/uL (0.00-0.02) D-Dimer 1410 ug/L FEU (0-500) Anion Gap 6.0 mmol/L (3-11) Est Creatinine Clear Calc Drug Dose 51.3 ml/min Estimated GFR () 73.1 Estimated GFR (Non- 63.1 BUN/Creatinine Ratio 12.3 (10-20) Calcium Level 8.7 mg/dl (8.5-10.1) Total Creatine Kinase 220 U/L (39-308) Creatine Kinase MB 3.8 ng/ml (0.5-3.6) Creatine Kinase MB Ratio 1.7 (0-3.0) Troponin I 11.700 ng/ml (0-0.045) Laboratory results per my review. Medications Administered Medications (Trade) Dose Ordered Sig/Carol Route Start Time Stop Time Status Last Admin Dose Admin Aspirin 324 mg 324 mg NOW STAT PO 1/28/17 07:07 03/14/16 07:09 DC 03/14/16 07:35 324 MG Sodium Chloride (Nss 500ml) 500 ml @ 999 mls/hr Q31M STAT IV 03/14/16 07:07 03/14/16 07:37 DC 03/14/16 07:38 999 MLS/HR Ketorolac Tromethamine (Toradol Inj) 15 mg NOW STAT IV 03/14/16 07:09 03/14/16 07:10 DC 03/14/16 07:39 15 MG ECG Indication: chest pain Rate (beats per minute): 79 Rhythm: sinus rhythm Findings: no ectopy, other (normal axis) Change: No acute change when compared to EKG dated 03/12/16. ED Course ED COURSE: Vital signs were reviewed and were normal. The patients medical record was reviewed The above diagnostic studies were performed and reviewed. ED treatments and interventions as stated above. 0700: The patient was evaluated in room A2. A complete history and physical examination was performed. 0707: NSS 500 ml @ 999 mls/hr, Aspirin 324 mg PO. 0709: Toradol 15 mg IV. 0802: The patient's chest pain is much improved. 1033: Updated the patient. 1037: Spoke with Dr. Wright, [place]. The patient will be evaluated. 1040: Upon reevaluation, the patient is stable.I discussed my findings with the patient and he understands and agrees with the treatment plan. Based on the patients age, coexisting illnesses, exam and lab findings the decision to treat as an inpatient was made. The patient remained stable while under my care. The patient will be evaluated for further management. Medical Decision Differential diagnoses includes but is not limited to acute coronary syndrome, myocardial infarction, pericarditis, pulmonary embolus, aortic dissection, pneumonia, pneumothorax, musculoskeletal, shingles, esophageal. Patient is an 81-year-old male presents the ER for chest pain which started at 3 AM this morning. He notes that has been persistent pain in the middle of his chest and is sharp stabbing in nature. It is worse with breathing. Does not improved with leaning forward. On 03/10 he had a drug-eluting stent placed in his left circumflex which did have collaterals. He was discharged 2 days ago. He did have some shortness of breath with this. He was given aspirin. He has been taking his Plavix. No other exacerbating or remitting factors. He notes the pain today does not feel similar to his previous WI. D-dimer was elevated. Chest x-ray was unremarkable. Troponin was elevated at 11 but does appear to be trending down from his and STEMI at 50. Uncertain whether this is ACS but since it is not consistent with his previous WI I did elect to treat him with Toradol as it was pleuritic. He had significant improvement of his pain with Toradol and aspirin. He was updated at bedside. This could also be a pericarditis or PE. Being that he is high risk following the CT PE which showed no PEs or infiltrate, I did elect to discuss this case with internal medicine. Patient was updated bedside and will benefit from an echo consequently will be observed as an inpatient. Consults Time Called: 1030 Consulting Physician: Dr. Wright, [facility] Returned Call: [phone]: Spoke with Dr. Wright [facility]. The patient will be evaluated. Impression Primary Impression: Precordial pain Additional Impression: Pleuritic chest pain Scribe Attestation The scribe's documentation has been prepared under my direction and personally reviewed by me in its entirety. I confirm that the note above accurately reflects all work, treatment, procedures, and medical decision making performed by me. Departure Information Dispostion Being Evaluated By Hospitalist Referrals No Doctor, Assigned (PCP) Patient Instructions My [facility] Problem Qualifiers
--- NOTE | 2016-03-14 10:04 | DIAGNOSTIC IMAGING REPORT ---
CT ANGIOGRAM OF THE CHEST CLINICAL HISTORY: Atypical chest pain. SUSPECTED PULMONARY EMBOLISM. COMPARISON STUDY: Chest x-ray dated 03/06/2016 TECHNIQUE: Following the IV administration of 90 mL of Optiray-320, CT angiogram of the thorax was performed from the thoracic inlet to the lung bases utilizing the pulmonary embolus protocol. Images are reviewed in the axial, sagittal, and coronal planes. IV contrast was administered without complication. MIP imaging was performed. CT DOSE: 358.52 mGy.cm FINDINGS: There is a upper pole left renal lobulation versus mass. There is a partially visualized hypodense nodule within the upper pole of the right kidney. Mediastinal lymph nodes are the upper limits of normal in size. There are borderline enlarged right hilar lymph nodes. There is no evidence for axillary lymphadenopathy. There was no evidence of thoracic aortic dilatation. There were no pulmonary artery filling defects to indicate acute pulmonary embolism. There are trace bilateral pleural effusions. There are dependent atelectatic changes. There is mild subpleural septal thickening. This may indicate an element of mild interstitial edema. The heart is enlarged. There is a 4 mm perifissural right middle lobe pulmonary nodule. IMPRESSION: 1. No CT evidence of acute pulmonary embolism 2. No evidence of focal pulmonary consolidation 3. Cardiomegaly, trace pleural fluid, and minimal interstitial edema. Electronically signed by: Narayan Flores M.D. 03/14/2016 10:03 AM Dictated Date/Time: 03/14/2016 9:56 AM
[2016-03-14] MEDS ORDERED: NITROGLYCERIN 0.4 MG SL PER TAB CHARGE SL PRN (11:45)
[2016-03-14] MEDS ORDERED: POLYETHYLENE (MIRALAX) 17 GM PACK PO PRN (11:45)
[2016-03-14] MEDS ORDERED: ACETAMINOPHEN 325 MG TAB PO PRN (11:45)
[2016-03-14] MEDS ORDERED: ONDANSETRON INJ 2 MG/ML 2 ML VIAL IV PRN (11:45)
[2016-03-14] MEDS ORDERED: NITROGLYCERIN OINT 2% 1GM PACKET EXT PRN (11:45)
--- NOTE | 2016-03-14 12:05 | History and Physical ---
History & Physical Date & Time of Service: Mar 14, 2016 at 11:45 Chief Complaint: Chest Pain/Heart Attack On Wednesday Primary Care Physician: No Doctor, Assigned History of Present Illness This is a pleasant 81 yo male with PMHx CAD who underwent cardiac cath x 1 ELEAZAR placed in the L circumflex artery on 03/10/16 after NSTEMI, HTN, and a recent upper respiratory infection with residual cough who presents emergency department with right sided chest pain. Pt reports pain started late last night but was able to go to sleep. He woke up around 0300 with worsening pain and took 1 nitroglycerine tablet without relief and presented to the ED. His pain is worse with breathing, especially deep breaths. He also notes last night experienced a frontal headache with some nasal congestion, but denies taking decongestant medication. He reports taking all medication as prescribed from recent admission and has not missed a plavix dose since being discharged 2 days ago. He denies any strenuous activities or heavy lifting. He reports his cough is somewhat worse and that he now has yellow-clear sputum. The patient has not yet taken his routine medications today, but was administered 1 full dose aspirin in the ED. His BP is normotensive. Trop-I= 11 but is markedly decreased compared to his levels on prior admission. CXR was obtained and clear of focal infiltrates or consolidations. CTA completed and is negative for acute PE. Past Medical/Surgical History 1. History of NSTEMI s/p cardiac cath and 1 ELEAZAR 2. HTN 3. Upper respiratory infection Family History Patient reports no known family medical history. Father- previous [place], at age 91 Brother- cardiac history Social History Smoking Status: Never Smoker Smokeless Tobacco Use: No Drug Use: none Marital Status: Housing status: lives with family Occupational Status: employed ([employer]) Allergies Coded Allergies: No Known Allergies (Verified , 03/10/16) Home Medications Scheduled Aspirin (Aspirin EC Low Dose), 81 MG PO QAM Atorvastatin (Atorvastatin Calcium), 80 MG PO QAM Clopidogrel Bisulfate (Clopidogrel), 75 MG PO QAM Lisinopril (Lisinopril), 2.5 MG PO QAM Metoprolol Succinate (Metoprolol Succinate ER), 50 MG PO QAM Scheduled PRN Nitroglycerin (Nitrostat), 0.4 MG SL PRN PRN for Chest Pain Physical Exam Vital Signs Date Time Temp Pulse Resp B/P Pulse Ox O2 Delivery O2 Flow Rate FiO2 03/14/16 11:12 75 18 122/87 97 Room Air 03/14/16 10:31 73 03/14/16 10:30 75 16 135/71 97 Room Air 03/14/16 09:44 76 16 159/93 95 Room Air 03/14/16 08:53 95 Room Air 03/14/16 08:31 73 16 118/71 03/14/16 08:03 72 16 111/73 03/14/16 07:10 76 03/14/16 07:03 37.0 81 22 136/75 95 Room Air 03/14/16 07:03 95 Room Air General Appearance: WD/WN, no apparent distress Head: normocephalic, atraumatic Eyes: PERRL, EOMI ENT: hearing grossly normal, pharynx normal Neck: supple, no JVD, no carotid bruits Respiratory/Chest: lungs clear, normal breath sounds, no accessory muscle use, + pertinent finding (+ chest tenderness with palpation over the right anterior wall. + ecchymosis over left flank to left anterior chest wall) Cardiovascular: regular rate, rhythm, no murmur, normal peripheral pulses Abdomen/GI: normal bowel sounds, non tender, soft Back: normal inspection Extremities/Musculoskelatal: no calf tenderness, no pedal edema Neurologic/Psych: alert, normal mood/affect, oriented x 3 Skin: normal color, warm/dry Diagnostics Laboratory Results Results Past 24 Hours Test 03/14/16 07:25 03/14/16 08:07 Range/Units White Blood Count 11.05 4.8-10.8 K/uL Red Blood Count 4.40 4.7-6.1 M/uL Hemoglobin 13.9 14.0-18.0 g/dL Hematocrit 39.8 42-52 % Mean Corpuscular Volume 90.5 80-100 fL Mean Corpuscular Hemoglobin 31.6 25-34 pg Mean Corpuscular Hemoglobin Concent 34.9 32-36 g/dl Platelet Count 250 130-400 K/uL Mean Platelet Volume 10.0 7.4-10.4 fL Neutrophils (%) (Auto) 75.7 % Lymphocytes (%) (Auto) 11.5 % Monocytes (%) (Auto) 10.1 % Eosinophils (%) (Auto) 2.2 % Basophils (%) (Auto) 0.3 % Neutrophils # (Auto) 8.37 1.4-6.5 K/uL Lymphocytes # (Auto) 1.27 1.2-3.4 K/uL Monocytes # (Auto) 1.12 0.11-0.59 K/uL Eosinophils # (Auto) 0.24 0-0.5 K/uL Basophils # (Auto) 0.03 0-0.2 K/uL RDW Standard Deviation 44.7 36.4-46.3 fL RDW Coefficient of Variation 13.6 11.5-14.5 % Immature Granulocyte % (Auto) 0.2 % Immature Granulocyte # (Auto) 0.02 0.00-0.02 K/uL D-Dimer 1410 0-500 ug/L FEU Sodium Level 141 136-145 mmol/L Potassium Level 4.4 3.5-5.1 mmol/L Chloride Level 108 98-107 mmol/L Carbon Dioxide Level 27 21-32 mmol/L Anion Gap 6.0 3-11 mmol/L Blood Urea Nitrogen 14 7-18 mg/dl Creatinine 1.10 0.60-1.40 mg/dl Est Creatinine Clear Calc Drug Dose 51.3 ml/min Estimated GFR () 73.1 Estimated GFR (Non- 63.1 BUN/Creatinine Ratio 12.3 10-20 Random Glucose 100 70-99 mg/dl Calcium Level 8.7 8.5-10.1 mg/dl Total Creatine Kinase 220 39-308 U/L Creatine Kinase MB 3.8 0.5-3.6 ng/ml Creatine Kinase MB Ratio 1.7 0-3.0 Troponin I 11.700 0-0.045 ng/ml Diagnostic Radiology CT ANGIOGRAM OF THE CHEST CLINICAL HISTORY: Atypical chest pain. SUSPECTED PULMONARY EMBOLISM. COMPARISON STUDY: Chest x-ray dated 03/06/2016 TECHNIQUE: Following the IV administration of 90 mL of Optiray-320, CT angiogram of the thorax was performed from the thoracic inlet to the lung bases utilizing the pulmonary embolus protocol. Images are reviewed in the axial, sagittal, and coronal planes. IV contrast was administered without complication. MIP imaging was performed. CT DOSE: 358.52 mGy.cm FINDINGS: There is a upper pole left renal lobulation versus mass. There is a partially visualized hypodense nodule within the upper pole of the right kidney. Mediastinal lymph nodes are the upper limits of normal in size. There are borderline enlarged right hilar lymph nodes. There is no evidence for axillary lymphadenopathy. There was no evidence of thoracic aortic dilatation. There were no pulmonary artery filling defects to indicate acute pulmonary embolism. There are trace bilateral pleural effusions. There are dependent atelectatic changes. There is mild subpleural septal thickening. This may indicate an element of mild interstitial edema. The heart is enlarged. There is a 4 mm perifissural right middle lobe pulmonary nodule. IMPRESSION: 1. No CT evidence of acute pulmonary embolism 2. No evidence of focal pulmonary consolidation 3. Cardiomegaly, trace pleural fluid, and minimal interstitial edema. Electronically signed by: Narayan Flores M.D. 03/14/2016 10:03 AM Dictated Date/Time: 03/14/2016 9:56 AM The status of this report is Signed. Draft = Not yet reviewed or approved by Radiologist. Signed = Reviewed and approved by Radiologist. <AttendingPhy></AttendingPhy> <FamilyPhy>No Doctor, Assigned</FamilyPhy> < PrimaryPhy>No Doctor, Assigned</PrimaryPhy> <UnitNumber>[id number]</UnitNumber> <VisitNumber>[id number]</VisitNumber> <PatientName>THOMASDIVINA</ PatientName> <DateOfBirth>1935</DateOfBirth> <Location>[facility]</Location> < ServiceDate>03/14/16</ServiceDate> <MNE>ESINDI</MNE> <OrderingPhy>García Flanagan DO</OrderingPhy> <OrderingPhyMNE>f rep ord dr wall</OrderingPhyMNE> < DictatingPhyMNE>f rep dict dr wall</DictatingPhyMNE> <CCListMNE>f rep ct polinae</ CCListMNE> <AdmittingPhyMNE>f pt admit dr wall</AdmittingPhyMNE> <AttendingPhyMNE >f pt attend dr wall</AttendingPhyMNE> <ConsultingPhyMNE>f pt consult dr wall</ConsultingPhyMNE> <FamilyPhyMNE>f pt fam dr wall</FamilyPhyMNE> <OtherPhyMNE>f pt other dr wall</OtherPhyMNE> < PrimaryPhyMNE>f pt prim care dr wall</PrimaryPhyMNE> <ReferringPhyMNE>f pt referring dr wall</ReferringPhyMNE> CHEST ONE VIEW PORTABLE CLINICAL HISTORY: Atypical chest pain COMPARISON STUDY: 03/10/2016 FINDINGS: The cardiac and mediastinal contours remain stable. There is persistent right hilar fullness. There is no lobar consolidation. There is no overt failure. There are no pleural effusions.[ IMPRESSION: Persistent right hilar fullness. Mild central vascular prominence without evidence of overt failure. No evidence of focal pulmonary consolidation. Electronically signed by: Narayan Flores M.D. 03/14/2016 7:25 AM Dictated Date/Time: 03/14/2016 7:24 AM The status of this report is Signed. Draft = Not yet reviewed or approved by Radiologist. Signed = Reviewed and approved by Radiologist. <AttendingPhy></AttendingPhy> <FamilyPhy>No Doctor, Assigned</FamilyPhy> < PrimaryPhy>No Doctor, Assigned</PrimaryPhy> <UnitNumber>[id number]</UnitNumber> <VisitNumber>[id number]</VisitNumber> <PatientName>THOMASDIVINA</ PatientName> <DateOfBirth>1935</DateOfBirth> <Location>[facility]</Location> < ServiceDate>03/14/16</ServiceDate> <MNE>ESINDI</MNE> <OrderingPhy>García Flanagan DO</OrderingPhy> <OrderingPhyMNE>f rep ord dr wall</OrderingPhyMNE> < DictatingPhyMNE>f rep dict dr wall</DictatingPhyMNE> <CCListMNE>f rep ct mae</ CCListMNE> <AdmittingPhyMNE>f pt admit dr wall</AdmittingPhyMNE> <AttendingPhyMNE >f pt attend dr wall</ EKG Vent. rate 79 BPM WA interval 142 ms QRS duration 102 ms QT/QTc 376/431 ms P-R-T axes 61 84 57 EKG without evidence of previous T wave inversion in the lateral leads. No acute ischemic or ST wave changes noted. Impression Assessment and Plan This is a pleasant 81 yo male with PMHx CAD who underwent cardiac cath x 1 ELEAZAR placed in the L circumflex artery on 03/10/16 after NSTEMI, HTN, and a recent upper respiratory infection with residual cough who presents emergency department with right sided chest pain. Right sided chest pain - Previous NSTEMI-occlusion In prox L circumflex s/p ELEAZAR placement 03/10/2016. - Will admit to tele for observation - Possibly residual pericarditis s/p NSTEMI causing residual pain? Salina's syndrome also in the differential although EKG does not show ST wave changes which would strongly suggest this. - Continue all home meds for now: metoprolol succinate 50 mg daily, lisinopril 2.5 mg daily, asa 81 mg, atorvastatin 80 mg daily, plavix 75 mg daily - Consult cardiology for recs - Will start the patient on nitro paste now for anginal symptoms - Imaging reviewed as above, no current findings for acute infectious process - CTA completed and negative for acute PE - Trop trended down from last admission = 11 now and previously was >200. HTN - Cont metoprolol as above - currently normotensive and rate controlled Upper respiratory tract infection - chest x-ray clear. - Afebrile - no leukocytosis - treat sx prn - during last admit flu was checked and negative. DVT prophylaxis -TEDS, SCDs, plavix CODE STATUS : LEVEL I FULL CODE Disposition: From home, grandson lives with him. D/c when medically stable. I agree with PA assessment and plan and have seen and examined pt myself CP althought reproducible in nature Trop trending down EKG NSR Will provide pain control at this time but unlikely cardiac in nature Cardiology consulted ?Pericarditis s/p cath Level of Care Telemetry Advanced Directives Existing Advance Directive: No Existing Living Will: No Existing Power of Switchboard Operator Receptionist: No Resuscitation Status FULL RESUSCITATION VTE Prophylaxis VTE Risk Assessment Done? Y/N: Yes Risk Level: Moderate Given or contraindicated: Other Anticoagulation, T.E.D. Stockings, SCD's
[2016-03-14] MEDS ORDERED: CLOPIDOGREL BISULFATE 75 MG TAB ONE (12:25)
[2016-03-14] MEDS ORDERED: COUGH DROP (SUGAR FREE) LOZ 24 LOZ/1 BOX PO PRN (12:30)
[2016-03-14] MEDS: HYDROCODONE/ACETAMOPHEN 5/325MG TAB PO PRN (13:51)
[2016-03-14] MEDS ORDERED: IV FLUIDS COMPLETED PRN (14:00)
[2016-03-14] MEDS: BENZONATATE 100MG CAP PO SCH ×2 (15:37→21:02)
[2016-03-14] MEDS: ATORVASTATIN 40 MG TAB PO SCH (15:40)
--- NOTE | 2016-03-14 15:43 | CARDIOLOGY CONSULTATION ---
DATE OF CONSULTATION: 03/14/2016 DATE OF CONSULTATION: 03/14/2016. TIME: 1507 p.m. PRIMARY TAPE TRANSFERRER: Dr. Valeriy Hoyos. CONSULTING PHYSICIAN: Dr. Jamison. REASON FOR CONSULTATION: Chest pain. HISTORY OF PRESENT ILLNESS: Mr. Kingston is a pleasant 81-year-old gentleman who was recently discharged from [facility] on 03/12/2016 where he was treated for a circumflex myocardial infarction. He underwent cardiac catheterization on 03/10/2016 and was found to have occluded proximal circumflex. He underwent PCI with a 2.25 x 18 mm Resolute drug-eluting stent. The proximal and mid portion of the stent was then post-dilated with a 2.75 noncompliant balloon. The remainder of the cath demonstrated mid LAD of 30-40%, distal LAD 20%, ostial D2 50%, ostial OM1 of 50% and proximal OM2 of up to 10%, including the mid OM2 vessel. There were right to left collaterals to the circumflex distribution. He tolerated the procedure well and had an echocardiogram done during that hospitalization on 03/10/2016 which demonstrated a basal to mid inferolateral, lateral, and basal inferior hypokinesis. There is mild right ventricular dilation and mild RV systolic dysfunction. There was mild mitral regurgitation. He was discharged home on aspirin, Plavix, SEMLA inhibitor, beta chidi and high intensity statin therapy. At 3:00 a.m. this morning he woke up with acute right-sided chest pain. He took nitroglycerin with no relief. After approximately 3 hours he decided to seek out medical attention. The pain lasted for approximately 4 hours or so. He was then given Toradol in the Emergency Department. Since then, his pain has been relieved for the most part. The pain is described as a right-sided sharp chest pain that does not radiate. There is a pleuritic component. It feels nothing like his prior angina during his myocardial infarction. He also has been coughing for 2 weeks, preceding his myocardial infarction. This continues to occur and sometimes is productive of white sputum. The chest pain worsens with cough. He denies fevers, chills, syncope, near syncope, palpitations, orthopnea, PND or edema. He is tolerating antiplatelet therapy without bleeding such as melena, hematochezia or hematuria. REVIEW OF SYSTEMS: As above and other review of systems otherwise negative. PAST MEDICAL HISTORY: 1. CAD status post circumflex non-ST elevation myocardial infarction and PCI with drug-eluting stent. 2. Hypertension. 3. Nephrolithiasis. 4. Recent upper respiratory infection. CURRENT MEDICATIONS: Include aspirin 81 mg daily, Plavix 75 mg daily, Lipitor 80 mg daily, Lisinopril 2.5 mg daily. ALLERGIES: No known drug allergies. SOCIAL HISTORY: Denies tobacco, alcohol or drug abuse. He is a . He had 3 children, 2 which are living. His daughter and son-in-law are present at the bedside. He owns and operates a dairy farm. He lives at home and his grandson stays with him overnight. FAMILY HISTORY: Father had myocardial infarction in his 80s. PHYSICAL EXAMINATION: VITAL SIGNS: Temperature 36.7 degrees, heart rate 81 beats per minute, respiration rate 18, blood pressure 137/75 mmHg, oxygen saturation 97% on room air, weight 77.3 kg. GENERAL: No acute distress. He is alert and oriented. HEAD, EYES, EARS, NOSE, AND THROAT: Anicteric sclerae. NECK: No appreciable JVD. No bruits. Normal carotid upstrokes bilaterally. CARDIAC EXAMINATION: PMI was nondisplaced. There was no ventricular heave. Regular, normal S1, S2. No audible murmurs, rubs or gallops. LUNGS: Clear to auscultation bilaterally without wheezes, rales or rhonchi. ABDOMEN: Soft, nontender, nondistended, normoactive bowel sounds, no bruits noted. EXTREMITIES: No cyanosis or edema. 2+ radial pulses bilaterally. 2+ dorsalis pedis pulses bilaterally. No palpable cords. No cyanosis or pitting edema. PSYCHIATRIC: Affect appears appropriate. CHEST: There is a mild ecchymosis over the right side of the chest and a much larger and appears to be more recent ecchymosis on the left side of the chest. The left side of the chest is nontender. The right side of the chest is significantly tender reproducing his chest pain as described in the HPI. ECG upon presentation was personally reviewed. It demonstrated normal sinus rhythm at 79 beats per minute. Normal ECG. LABORATORY DATA: White blood cell count 11, hemoglobin 13.9, platelets 250. Sodium 141, potassium 4.4, BUN 14, creatinine 1.1. Troponin 11.7 and it was 51.9 on 03/11/2016, trending down from over 200. D-dimer is 1,410. CT angiogram of the chest report reviewed from this hospitalization. No acute pulmonary embolism. No focal pulmonary consolidation. Chest x-ray image personally reviewed. No obvious infiltrate. Radiology also reports hilar fullness. ASSESSMENT AND PLAN: 1. Right-sided chest pain: His chest pain is atypical and is not consistent with ischemic heart disease. It appears to be musculoskeletal as it is very reproducible pain and tender upon palpation. Etiology of the musculoskeletal pain is uncertain however. Would avoid NSAIDs if possible given his recent NE and the need for aspirin and Plavix. Can use Tylenol or other pain relieving medication. Could also use full dose aspirin if necessary; however, monitor for bleeding while being on Plavix. 2. Cough: This precedes SELMA inhibitor. He appears euvolemic on exam. This also precedes his myocardial infarction. He is currently being investigated for pertussis. Lab serologies are pending as per primary service. 3. Hypertension: Blood pressure has been well controlled for the most part with only mild hypertension occasionally. Lisinopril can be further titrated if necessary. Would continue current medications for now. 4. Coronary artery disease status post recent circumflex myocardial infarction and intervention: Continue aspirin 81 mg daily indefinitely. Continue Plavix for at least 1 year, possibly longer. Continue high intensity statin therapy and beta chidi. Continue SELMA inhibitor. 5. Disposition: Recommend another troponin level to ensure that they are trending downward. However, his pain is not consistent with ischemic heart disease. No further cardiology evaluation recommended at this time. He can follow up in Dr. Hoyos's office in the near future. The patient's care has been discussed with hospitalist service, Gay Rangel . Greater than 40 minutes time spent evaluating patient, counseling patient, coordinating care, and reviewing imaging studies and hospital records. HOLA
[2016-03-14] MEDS: LISINOPRIL 2.5 MG TAB PO SCH (16:09)
[2016-03-14] MEDS: METOPROLOL SUCC 50MG EXT REL TAB PO SCH (16:10)
[2016-03-15] VITALS: O2SAT 94
[2016-03-15 00:05] VITALS: BP 100/63; PULSE 71; TEMP 37.3; O2SAT 94
[2016-03-15] MEDS: HYDROCODONE/ACETAMOPHEN 5/325MG TAB PO PRN (00:09)
[2016-03-15 04:17] VITALS: BP 106/65; PULSE 66; TEMP 37.2; O2SAT 95
[2016-03-15 05:57] LABS: HEMATOCRIT 38.1 % (42-52); MEAN CELL VOLUME 90.3 fL (80-100); MEAN CORPUSCULAR HEMOGLOBIN 30.8 pg (25-34); MEAN CORPUSCULAR HGB CONC 34.1 g/dl (32-36); MEAN PLATELET VOLUME 10.1 fL (7.4-10.4); PLATELET COUNT 232 K/uL (130-400); RED BLOOD COUNT 4.22 M/uL (4.7-6.1); WHITE BLOOD COUNT 6.38 K/uL (4.8-10.8)
[2016-03-15 06:29] LABS: BUN/CREATININE RATIO 16.3 (10-20); CALCIUM 8.4 mg/dl (8.5-10.1); CREATININE 0.95 mg/dl (0.60-1.40); POTASSIUM 4.1 mmol/L (3.5-5.1)
[2016-03-15 07:46] VITALS: BP 126/70; PULSE 68; TEMP 36.8; O2SAT 93
[2016-03-15 08:00] VITALS: O2SAT 94
[2016-03-15 08:48] VITALS: BP 126/70; PULSE 68; TEMP 36.8; O2SAT 94
[2016-03-15] MEDS ORDERED: HYDR-5688 PO (08:50)
[2016-03-15] MEDS ORDERED: BENZ100C7 PO (08:50)
[2016-03-15] MEDS: ATORVASTATIN 40 MG TAB PO SCH (08:58)
[2016-03-15] MEDS: BENZONATATE 100MG CAP PO SCH (08:58)
--- NOTE | 2016-03-15 08:59 | Discharge Instructions ---
Discharge Instructions Admission Reason for Admission: Chest Pain/Heart Attack On Wednesday Discharge Discharge Diagnosis / Problem: Pleuritic chest pain Discharge Goals Goal(s): Decrease discomfort, Improve function Activity Recommendations Activity Limitations: resume your previous activity Lifting Limitations: no more than 10 pounds Exercise/Sports Limitations: until after follow-up appointment (with cardiology ) May Resume Sexual Activity: after follow-up appointment (with cardiology) Shower/Bathe: no limitations Driving or Machine Use: no limitations . Instructions / Follow-Up Instructions / Follow-Up You were admitted to [facility] with chest pain and diagnosed with pleuritic chest pain. This is musculoskeletal in nature and not related to a cardiac event. You are experiencing this due to having a NSTEMI earlier last week. During your stay here you were treated with pain medication. You were seen by cardiology who recommended you continue the same medications as prescribed and also agreed this was not pain which was cardiac in nature. New Medications Include: 1. Addison tablets to take for pain: Take one every 4 hours, only NEEDED 2. Tessalon pearls for cough: take one every 8 hours, NEEDED for cough Follow up with your PCP within 1 week. Follow up with cardiology within [address] Hoyos as already scheduled. Current Hospital Diet Patient's current hospital diet: AHA Diet (Heart Healthy) Discharge Diet Recommended Diet: AHA Diet (Heart Healthy) Procedures Procedures Performed: None Pending Studies Studies pending at discharge: no Laboratory Results Hemoglobin A1c Test 03/10/16 07:59 Range/Units Estimated Average Glucose 117 mg/dl Hemoglobin A1c 5.7 H 4.5-5.6 % Lipid Panel Test 03/11/16 05:23 Range/Units Triglycerides Level 84 0-150 mg/dl Cholesterol Level 113 0-200 mg/dl HDL Cholesterol 30 mg/dl Cholesterol/HDL Ratio 3.8 LDL Cholesterol, Calculated 66 mg/dl Medical Emergencies . Who to Call and When: Medical Emergencies: If at any time you feel your situation is an emergency, please call 911 immediately. . Non-Emergent Contact Non-Emergency issues call your: Primary Care Provider, Student Development Specialist Call Non-Emergent contact if: temperature is above 100.5, your pain is not controlled, your pain is worsening, your pain is unusual for you, your pain is concerning you, you have any medication questions . Past History Medical & Surgical History: (1) Pleuritic chest pain . "Provider Documentation" section prepared by Gay Rangel. VTE Core Measure Inpt VTE Proph given/why not?: Other Anticoagulation, T.E.D. Stockings, SCD's
[2016-03-15] MEDS ORDERED: ASPIRIN 81 MG ECTAB PO SCH (09:00)
[2016-03-15] MEDS ORDERED: CLOPIDOGREL BISULFATE 75 MG TAB PO SCH (09:00)
--- NOTE | 2016-03-15 09:10 | Discharge Summary ---
Discharge Summary Admission Date: Mar 14, 2016 at 11:44 Discharge Date: Mar 15, 2016 Discharge Disposition: Home Principal Diagnosis: Pleuritic Chest pain Problems/Secondary Diagnoses: s/p NSTEMI and CABG x 1 ELEAZAR stent, HTN, HDL Procedures: CHEST ONE VIEW PORTABLE CLINICAL HISTORY: Atypical chest pain COMPARISON STUDY: 03/10/2016 FINDINGS: The cardiac and mediastinal contours remain stable. There is persistent right hilar fullness. There is no lobar consolidation. There is no overt failure. There are no pleural effusions.[ IMPRESSION: Persistent right hilar fullness. Mild central vascular prominence without evidence of overt failure. No evidence of focal pulmonary consolidation. Electronically signed by: Narayan Flores M.D. 03/14/2016 7:25 AM Dictated Date/Time: 03/14/2016 7:24 AM The status of this report is Signed. Draft = Not yet reviewed or approved by Radiologist. Signed = Reviewed and approved by Radiologist. <AttendingPhy></AttendingPhy> <FamilyPhy>No Doctor, Assigned</FamilyPhy> < PrimaryPhy>No Doctor, Assigned</PrimaryPhy> <UnitNumber>[id number]</UnitNumber> <VisitNumber>[id number] Patient Name: DIVINA GUZMAN Unit Number: [id number] Dictated: 03/14/16955 Transcribed: 03/14/16955 ARG Printed Date/Time: [~ rep prt dt]/[~ rep prt tm] [~ rep ct labl] - [~ rep ct ivnm] [facility] [place] [address] Dictated: 03/14/16955 Transcribed: 03/14/16955 ARG Printed Date/Time: [~ rep prt dt]/[~ rep prt tm] [~ rep ct labl] - [~ rep ct ivnm] [~ rep ct add3]] CT ANGIOGRAM OF THE CHEST CLINICAL HISTORY: Atypical chest pain. SUSPECTED PULMONARY EMBOLISM. COMPARISON STUDY: Chest x-ray dated 03/06/2016 TECHNIQUE: Following the IV administration of 90 mL of Optiray-320, CT angiogram of the thorax was performed from the thoracic inlet to the lung bases utilizing the pulmonary embolus protocol. Images are reviewed in the axial, sagittal, and coronal planes. IV contrast was administered without complication. MIP imaging was performed. CT DOSE: 358.52 mGy.cm FINDINGS: There is a upper pole left renal lobulation versus mass. There is a partially visualized hypodense nodule within the upper pole of the right kidney. Mediastinal lymph nodes are the upper limits of normal in size. There are borderline enlarged right hilar lymph nodes. There is no evidence for axillary lymphadenopathy. There was no evidence of thoracic aortic dilatation. There were no pulmonary artery filling defects to indicate acute pulmonary embolism. There are trace bilateral pleural effusions. There are dependent atelectatic changes. There is mild subpleural septal thickening. This may indicate an element of mild interstitial edema. The heart is enlarged. There is a 4 mm perifissural right middle lobe pulmonary nodule. IMPRESSION: 1. No CT evidence of acute pulmonary embolism 2. No evidence of focal pulmonary consolidation 3. Cardiomegaly, trace pleural fluid, and minimal interstitial edema. Electronically signed by: Narayan Flores M.D. 03/14/2016 10:03 AM Dictated Date/Time: 03/14/2016 9:56 AM The status of this report is Signed. Draft = Not yet reviewed or approved by Radiologist. Signed = Reviewed and approved by Radiologist. <AttendingPhy></AttendingPhy> <FamilyPhy>No Doctor, Assigned</FamilyPhy> < PrimaryPhy>No Doctor, Assigned</PrimaryPhy> <UnitNumber>[id number]</UnitNumber> <VisitNumber>[id number]</VisitNumber> <PatientName>DIVINA GUZMAN</ PatientName> <DateOfBirth>1935</DateOfBirth> <Location>[facility]</Location> < ServiceDate>03/14/16</ServiceDate> <MNE>ESINDI</MNE> <OrderingPhy>García Flanagan DO</OrderingPhy> <OrderingPhyMNE>f rep ord dr wall</OrderingPhyMNE> < DictatingPhyMNE>f rep dict dr wall</DictatingPhyMNE> <CCListMNE>f rep ct mne</ CCListMNE> <AdmittingPhyMNE>f pt admit dr wall</AdmittingPhyMNE> <AttendingPhyMNE >f pt attend dr wall</AttendingPhyMNE> <ConsultingPhyMNE>f pt consult dr wall</ConsultingPhyMNE> <FamilyPhyMNE>f pt fam dr wall</FamilyPhyMNE> <OtherPhyMNE>f pt other dr wall</OtherPhyMNE> < PrimaryPhyMNE>f pt prim care dr wall</PrimaryPhyMNE> <ReferringPhyMNE>f pt referring dr wall</ReferringPhyMNE> Consultations: Cardiology (Malathi Rangel, KAMILAH) Medication Reconciliation New Medications: Benzonatate (Benzonatate) 100 Mg Cap 100 MG PO TID for 28 Days, #84 CAP Hydrocodone/Acetaminophen 5MG/325MG ([place] 5MG/325MG) Tab 1 TAB PO Q4 PRN for Pain for 28 Days, #112 TAB PRN PAIN Continued Medications: Aspirin (Aspirin EC Low Dose) 81 Mg Ectab 81 MG PO QAM for 30 Days Atorvastatin (Atorvastatin Calcium) 40 Mg Tab 80 MG PO QAM for 30 Days, #60 TAB Clopidogrel Bisulfate (Clopidogrel) 75 Mg Tab 75 MG PO QAM for 30 Days, #30 TAB Lisinopril (Lisinopril) 5 Mg Tab 2.5 MG PO QAM for 30 Days, #15 TAB Metoprolol Succinate (Metoprolol Succinate ER) 50 Mg Tabcr 50 MG PO QAM for 30 Days Nitroglycerin (Nitrostat) 0.4 Mg/1 Tab Subl 0.4 MG SL PRN PRN for Chest Pain, #60 Discharge Exam The patient was seen and examined this morning. Pt reports pain is gone this morning and that norco was very helpful. His cough is less severe with tessalon pearls on board. he denies shortness of breath, chest pain, or abdominal pain. Pt has no acute complaints. Review of Systems: Constitutional: No chills, No fever, No sweats Eyes: No diplopia ENT: No sore throat, No tinnitus Respiratory: No cough, No dyspnea at rest, No dyspnea on exertion, No shortness of breath Cardiovascular: No chest pain, No palpitations Abdomen: No nausea, No pain, No vomiting Musculoskeletal: No calf pain, No joint pain, No swelling Integumentary: No itch, No rash Physical Exam: General Appearance: WD/WN, no apparent distress Eyes: PERRL, EOMI ENT: hearing grossly normal, pharynx normal Neck: supple, no JVD Respiratory/Chest: chest non-tender, lungs clear, normal breath sounds, no respiratory distress, no accessory muscle use Cardiovascular: regular rate, rhythm, no murmur, normal peripheral pulses Abdomen / GI: normal bowel sounds, non tender, soft Extremities: no calf tenderness, no pedal edema Neurologic/Psychiatric: alert, normal mood/affect, oriented x 3 Skin: normal color, warm/dry (Malathi Rangel PA-C) Hospital Course H&P per Gay Rangel PA-C This is a pleasant 81 yo male with PMHx CAD who underwent cardiac cath x 1 ELEAZAR placed in the L circumflex artery on 03/10/16 after NSTEMI, HTN, and a recent upper respiratory infection with residual cough who presents emergency department with right sided chest pain. Pt reports pain started late last night but was able to go to sleep. He woke up around 0300 with worsening pain and took 1 nitroglycerine tablet without relief and presented to the ED. His pain is worse with breathing, especially deep breaths. He also notes last night experienced a frontal headache with some nasal congestion, but denies taking decongestant medication. He reports taking all medication as prescribed from recent admission and has not missed a plavix dose since being discharged 2 days ago. He denies any strenuous activities or heavy lifting. He reports his cough is somewhat worse and that he now has yellow-clear sputum. The patient has not yet taken his routine medications today, but was administered 1 full dose aspirin in the ED. His BP is normotensive. Trop-I= 11 but is markedly decreased compared to his levels on prior admission. CXR was obtained and clear of focal infiltrates or consolidations. CTA completed and is negative for acute PE. PE: General Appearance: WD/WN, no apparent distress Head: normocephalic, atraumatic Eyes: PERRL, EOMI ENT: hearing grossly normal, pharynx normal Neck: supple, no JVD, no carotid bruits Respiratory/Chest: lungs clear, normal breath sounds, no accessory muscle use, + pertinent finding (+ chest tenderness with palpation over the right anterior wall. + ecchymosis over left flank to left anterior chest wall) Cardiovascular: regular rate, rhythm, no murmur, normal peripheral pulses Abdomen/GI: normal bowel sounds, non tender, soft Back: normal inspection Extremities/Musculoskelatal: no calf tenderness, no pedal edema Neurologic/Psych: alert, normal mood/affect, oriented x 3 Skin: normal color, warm/dry Hospital Course: 81 yo male with PMHx CAD who underwent cardiac cath x 1 ELEAZAR placed in the L circumflex artery on 03/10/16 after NSTEMI, HTN, and a recent upper respiratory infection with residual cough who presents emergency department with right sided chest pain. Right sided chest pain - Previous NSTEMI-occlusion In prox L circumflex s/p ELEAZAR placement 03/10/2016. - Will admit to tele for observation - Pleuritic chest pain likely due to pericarditis s/p NSTEMI. - Cardiology was spoken to yesterday and recommended continuing all previous medications: metoprolol succinate 50 mg daily, lisinopril 2.5 mg daily, asa 81 mg, atorvastatin 80 mg daily, plavix 75 mg daily - Continue norco for analgesia - sent rx with the pt today - Imaging reviewed as above, no current findings for acute infectious process - CTA completed and negative for acute PE - Trop trended down from last admission = 11 now and previously was >200. - continues to trend down HTN - Cont metoprolol as above - currently normotensive and rate controlled Upper respiratory tract infection - chest x-ray clear, Afebrile, no leukocytosis - treat sx prn - during last admit flu was checked and negative. - Pertussis micro sent out - will need follow up with PCP within the next week for results. - Cough improved with tessalon pearls. DVT prophylaxis -TEDS, SCDs, plavix CODE STATUS : LEVEL I FULL CODE Disposition: From home, grandson lives with him. D/c home today. Total Time Spent: Greater than 30 minutes This includes examination of the patient, discharge planning, medication reconciliation, and communication with other providers. (Malathi Rangel, KAMILAH) Discharge Instructions Please refer to the electronic Patient Visit Report (Discharge Instructions) for additional information. (Malathi Rangel, KAMILAH) agree with PA d/c summary (Dilan Sandoval MD) Follow-Up Follow up with your Primary Care Provider within 1 week- Pt family was adamant about choosing their own PCP for the patient upon admission yesterday. He is agreeable to this. Follow up with your Train Clerk within 2 weeks. (Malathi Rangel, KAMILAH)
[2016-03-15] MEDS: METOPROLOL SUCC 50MG EXT REL TAB PO SCH (09:35)
[2016-03-15] MEDS: LISINOPRIL 2.5 MG TAB PO SCH (09:36)
[2016-03-17 16:27] LABS: BORDETELLA PERTUSSIS SOURCE Nasal Swab
== END 2016-03-15 10:15 | disposition home or self-care (01) ==
LOC: ENRESERVTM → ENRESERVDT → C.EDB 06:58 → C.2T 11:44 → C.2E 14:19
PROVIDERS: ADMIT Hospitalist; ATTEND Hospitalist
DX: R07.89 Other chest pain (principal); R05 Cough; I22.2 Subsequent non-ST elevation (NSTEMI) myocardial infarction; R91.1 Solitary pulmonary nodule; I10 Essential (primary) hypertension; E78.5 Hyperlipidemia, unspecified; J06.9 Acute upper respiratory infection, unspecified; I25.10 Atherosclerotic heart disease of native coronary artery without angina pectoris; Z95.1 Presence of aortocoronary bypass graft; Z79.82 Long term (current) use of aspirin; Z82.49 Family history of ischemic heart disease and other diseases of the circulatory system

== ENCOUNTER → 2016-06-22 | Outpatient (CLI) | payer BC ==
[~2016-06-22] MED LIST changes: +BENZ100C7 PO; +HYDR-5688 PO
[2016-06-22 10:21] LABS: ALT/SGPT 47 U/L (12-78); AST/SGOT 32 U/L (15-37); CHOLESTEROL 101 mg/dl (0-200); HDL CHOLESTEROL 34 mg/dl; TRIGLYCERIDES 72 mg/dl (0-150); VERY LOW DENSITY LIPOPROT CALC 14 mg/dl
== END | disposition home or self-care (01) ==
LOC: C.LAB1850 08:55
PROVIDERS: ATTEND Physician Assistant Medical
DX: E78.5 Hyperlipidemia, unspecified (principal)

== ENCOUNTER → 2017-03-25 | Outpatient (CLI) | payer BC ==
[2017-03-25 13:28] LABS: HEMATOCRIT 44.8 % (42-52); HEMOGLOBIN 15.2 g/dL (14.0-18.0); MEAN CELL VOLUME 92.6 fL (80-100); MEAN CORPUSCULAR HEMOGLOBIN 31.4 pg (25-34); MEAN CORPUSCULAR HGB CONC 33.9 g/dl (32-36); MEAN PLATELET VOLUME 10.1 fL (7.4-10.4); PLATELET COUNT 230 K/uL (130-400); RED CELL DISTRIBUTION WIDTH CV 13.8 % (11.5-14.5); WHITE BLOOD COUNT 8.88 K/uL (4.8-10.8)
[2017-03-25 14:25] LABS: ALBUMIN 3.9 gm/dl (3.4-5.0); ALT/SGPT 32 U/L (12-78); AST/SGOT 25 U/L (15-37); BLOOD UREA NITROGEN 13 mg/dl (7-18); CALCIUM 9.3 mg/dl (8.5-10.1); CARBON DIOXIDE 27 mmol/L (21-32); CREATININE 0.98 mg/dl (0.60-1.40); GLUCOSE 100 mg/dl (70-99); POTASSIUM 4.2 mmol/L (3.5-5.1); SODIUM 138 mmol/L (136-145)
[2017-03-25 14:27] LABS: ALKALINE PHOSPHATASE 78 U/L (45-117); CHOLESTEROL 92 mg/dl (0-200); LDL CHOLESTEROL CALCULATED 44 mg/dl; TOTAL PROTEIN 8.5 gm/dl (6.4-8.2)
== END | disposition home or self-care (01) ==
LOC: C.LAB1850 11:44
PROVIDERS: ATTEND Internal Medicine
DX: Z00.00 Encounter for general adult medical examination without abnormal findings (principal); I25.10 Atherosclerotic heart disease of native coronary artery without angina pectoris; E78.5 Hyperlipidemia, unspecified; I10 Essential (primary) hypertension